=== PATIENT | female | born 1935 | race Caucasian/White ===

== ENCOUNTER 2017-06-26 12:55 | Inpatient (IN) | payer MEDICARE, BC ==
[2017-06-26] MEDS ORDERED: Sodium Chloride 0.9% 1,000 ML IV ONE ×2 (13:40→13:44)
[2017-06-26] MEDS ORDERED: Pantoprazole 40 MG Vial IVPUSH ONE (13:41)
[2017-06-26] MEDS ORDERED: Sodium Chloride 0.9% 10 ML Syringe FLUSH PRN ×2 (13:44→17:47)
[2017-06-26] MEDS ORDERED: Famotidine 20 MG/2 ML SDV IVPUSH ONE (13:45)
[2017-06-26] MEDS ORDERED: HYDROmorphone 0.5 MG/0.5 ML Syringe IVPUSH ONE ×2 (13:46→15:10)
--- NOTE | 2017-06-26 13:52 | EDM.PDOC ---
ED HPI GENERAL MEDICAL PROBLEM - General Chief Complaint: Abdominal Pain Stated Complaint: BLACK STOOLS AND WEAK Time Seen by Provider: 06/26/17 13:29 Source of Information: Reports: Patient History Limitations: Reports: No Limitations - History of Present Illness INITIAL COMMENTS - FREE TEXT/NARRATIVE: 82-year-old female presents for evaluation and treatment of black tarry stools and weakness. Patient reports this morning around 5 AM she woke up with some discomfort in her stomach. She went to the bathroom. She reports she had a normal bowel movement. She first went back to bed and she immediately felt worsening discomfort went to the bathroom. She reports that she had an episode of black tarry stools. They do not sound loosening and were formed. Since then she has had 2 additional episodes, for 3 episodes total this morning. She reports associated symptoms of weakness, dizziness, abdominal discomfort, decreased appetite and chest discomfort. She denies any nausea, vomiting or shortness of breath. States she's never had anything like this before. Patient reports chronic back pain. She states that she has been on number of different medications for chronic back pain including fentanyl patches, hydrocodone and tramadol. She is currently scheduled to see a pain clinic in [place] on Wednesday. She reports that she does take Tylenol and Motrin for her back pain. She is on 81 mg aspirin daily. Patient reports previous abdominal surgeries including appendectomy, cholecystectomy and hysterectomy. Back Pain Score (Numeric/FACES): 6 - Related Data Allergies Allergy/AdvReac Type Severity Reaction Status Date / Time codeine Allergy Cannot Verified 09/01/15 06:34 Remember penicillin V Allergy Cannot Verified 09/01/15 06:34 Remember celecoxib AdvReac Fainting Verified 09/01/15 06:34 Dairy Products AdvReac Diarrhea Verified 09/01/15 06:34 Home Meds: Home Meds Aspirin [Halfprin] 81 mg PO DAILY 06/26/17 [History] Levothyroxine [Sythroid] 100 mcg PO DAILY 06/26/17 [History] Losartan. 0.5 tab PO DAILY 06/26/17 [History] Naproxen Sodium [Aleve] 1 cap PO Q12H 06/26/17 [History] Simvastatin [Zocor] 20 mg PO DAILY 06/26/17 [History] Triamterene/Hydrochlorothiazid [Triamterene-HCTZ 37.5-25 MG] 1 cap PO DAILY [History] Vitamin B Complex 1 cap PO DAILY 06/26/17 [History] Past Medical History HEENT History: Reports: Impaired Vision Cardiovascular History: Reports: High Cholesterol, Hypertension Neurological History: Reports: Migraines Endocrine/Metabolic History: Reports: Hypothyroidism - Past Surgical History GI Surgical History: Reports: Appendectomy, Cholecystectomy Female Surgical History: Reports: Hysterectomy Musculoskeletal Surgical History: Reports: Other (See Below) Social & Family History - Tobacco Use Smoking Status *Q: Never Smoker - Caffeine Use Caffeine Use: Reports: Coffee Other Caffeine Use: decaf coffee-very little - Recreational Drug Use Recreational Drug Use: No ED ROS GENERAL - Review of Systems Review Of Systems: See Below Constitutional: Reports: Malaise, Weakness, Fatigue, Decreased Appetite Respiratory: Denies: Shortness of Breath Cardiovascular: Reports: Chest Pain ("discomfort"), Lightheadedness. Denies: Syncope GI/Abdominal: Reports: Abdominal Pain (discomfort), Decreased Appetite, Melena. Denies: Nausea, Vomiting Musculoskeletal: Reports: Back Pain (chronic) Neurological: Denies: Syncope ED EXAM, GI/ABD - Physical Exam Exam: See Below Exam Limited By: No Limitations General Appearance: Alert, WD/WN, No Apparent Distress Ears: Normal External Exam Nose: Normal Inspection Throat/Mouth: Normal Inspection, Normal Lips, Normal Oropharynx Neck: Normal Inspection Respiratory/Chest: No Respiratory Distress, Lungs Clear, Normal Breath Sounds, Chest Non-Tender Cardiovascular: Normal Peripheral Pulses, Regular Rate, Rhythm, No Murmur GI/Abdominal Exam: Normal Bowel Sounds, Soft, Non-Tender Rectal (Female) Exam: Normal Exam, Normal Rectal Tone, Black Stool, Heme + Stool Neurological: Alert, Oriented, Normal Cognition Psychiatric: Normal Affect, Normal Mood Skin Exam: Warm, Dry, Pallor EKG INTERPRETATION EKG Date: 06/26/17 Time: 14:10 Rhythm: NSR Rate (Beats/Min): 79 [place]: Normal P-Wave: Present QRS: Normal ST-T: Normal QT: Normal EKG Interpretation Comments: NSR at [address] inversion in V5-V6. No St elevation . Reviewed by myself and Dr. Wang. Course - Vital Signs Last Recorded V/S: Last Vital Signs Temp 36.9 C 06/26/17 19:13 Pulse 84 06/26/17 13:19 Resp 16 06/26/17 19:13 BP 103/52 L 06/26/17 19:13 Pulse Ox 96 06/26/17 19:13 Orthostatic Blood Pressure [ 90/57 Sitting] Orthostatic Blood Pressure [ 112/59 Supine] - Orders/Labs/Meds Orders: Active Orders 24 hr Category Date Time Status Cardiac Monitoring [RC] . DIRECTED Care 06/26/17 13:41 Active EKG 12 Lead [EKG Documentation Completion] [RC] STAT Care 06/26/17 13:45 Active Orthostatic Vital Signs [RC] ASDIRECTED Care 06/26/17 13:41 Active Peripheral IV Care [RC] . DIRECTED Care 06/26/17 13:44 Active Abdomen 2V AP Flat Upright [CR] Stat Exams 06/26/17 13:41 Taken Chest 2V [CR] Stat Exams 06/26/17 13:41 Taken Hemoccult [OCCULT BLOOD DIAGNOSTIC] [OP] Stat Lab 06/26/17 13:46 Ordered Sodium Chloride 0.9% [Normal Saline] 1,000 ml Med 06/26/17 13:44 Active IV ONETIME Sodium Chloride 0.9% [Saline Flush] Med 06/26/17 13:44 Active 10 ml FLUSH ASDIRECTED PRN Sodium Chloride 0.9% [Saline Flush] Med 06/26/17 17:47 Active 10 ml FLUSH ONETIME PRN Peripheral IV Insertion Adult [OM.PC] Routine Oth 06/26/17 13:44 Ordered Medication Orders Acetaminophen (Tylenol) 650 mg PO Q4H PRN PRN Reason: Pain (Mild 1-3)/fever Albuterol/Ipratropium (Duoneb 3.0-0.5 Mg/3 Ml) 3 ml NEB Q4H PRN PRN Reason: Shortness Of Breath/wheezing Aspirin (Halfprin) 81 mg PO DAILY KIMI Bisacodyl (Dulcolax) 5 mg PO DAILY PRN PRN Reason: Constipation Docusate Sodium (Colace) 100 mg PO BID PRN PRN Reason: Constipation Fentanyl (Duragesic) 12 mcg TRDERM Q72H KIMI Hydralazine HCl (Apresoline) 10 mg IVPUSH Q4H PRN PRN Reason: Hypertension Hydromorphone HCl (Dilaudid) 1 mg IVPUSH Q4H PRN PRN Reason: Pain (severe 7-10) Sodium Chloride (Normal Saline) 1,000 mls @ 100 mls/hr IV ONETIME ONE Stop: 06/26/17 23:43 Last Admin: 06/26/17 14:15 Dose: 100 mls/hr Promethazine HCl 12.5 mg/ (Sodium Chloride) 50.5 mls @ 100 mls/hr IV Q6H PRN PRN Reason: Nausea/Vomiting Levothyroxine Sodium (Synthroid) 100 mcg PO ACBRK KIMI Lorazepam (Ativan) 0.25 mg IV Q6H PRN PRN Reason: Anxiety Magnesium Sulfate (Pharmacy To Dose - Magnesium Replacement) 1 dose .XX ASDIRECTED [facility] Metoprolol Tartrate (Lopressor) 5 mg IVPUSH Q4H PRN PRN Reason: Tachycardia Miscellaneous Information (Remove Patch) 1 ea TRDERM Q72H [facility] Non-Formulary Medication (Losartan.) 0.5 tab PO DAILY KIMI Ondansetron HCl (Zofran) 4 mg IV Q6H PRN PRN Reason: Nausea/Vomiting Oxycodone HCl (Oxycodone) 5 mg PO Q4H PRN PRN Reason: Pain (moderate 4-6) Pantoprazole Sodium (Protonix) 40 mg PO BIDAC [facility] Polyethylene Glycol (Miralax) 17 gm PO DAILY PRN PRN Reason: Constipation Potassium Chloride (Pharmacy To Dose - Potassium Replacement) 1 dose .XX ASDIRECTED [facility] Senna/Docusate Sodium (Senna Plus) 1 tab PO BID PRN PRN Reason: Constipation Sodium Chloride (Saline Flush) 10 ml FLUSH ASDIRECTED PRN PRN Reason: Keep Vein Open Last Admin: 06/26/17 14:20 Dose: 10 ml Sodium Chloride (Saline Flush) 10 ml FLUSH ONETIME PRN PRN Reason: IV FLUSH Last Admin: 06/26/17 17:59 Dose: 10 ml Temazepam (Restoril) 7.5 mg PO BEDTIME PRN PRN Reason: Sleep Triamterene/HCTZ (Dyazide 25-37.5 Mg) 1 each PO DAILY [facility] Vitamin B Complex/Vitamin C (Super B With Vitamin C) 1 cap PO DAILY [facility] Labs: Laboratory Tests 01/13/18 01/13/18 01/13/18 Range/Units 14:15 14:15 14:15 WBC 8.10 (3.98-10.04) K/mm3 RBC 3.23 L (3.98-5.22) M/mm3 Hgb 10.5 L (11.2-15.7) gm/L Hct 32.0 L (34.1-44.9) % MCV 99.1 H (79.4-94.8) fl MCH 32.5 H (25.6-32.2) pg MCHC 32.8 (32.2-35.5) g/dl RDW Std Deviation 45.8 (36.4-46.3) fL Plt Count 172 L (182-369) K/mm3 MPV 8.7 L (9.4-12.3) fl Neutrophils % (Manual) 79 H (40-60) % Band Neutrophils % 0 (0-10) % Lymphocytes % (Manual) 14 L (20-40) % Atypical Lymphs % 0 % Monocytes % (Manual) 6 (2-10) % Eosinophils % (Manual) 1 (0.7-5.8) % Basophils % (Manual) 0 L (0.1-1.2) Platelet Estimate Adequate Anisocytosis 1+ slight Macrocytosis 1+ slight Ovalocytes 1+ slight RBC Morph Comment Not Reportable PT 10.7 (8.0-13.0) SECONDS INR 0.98 APTT 20 L (22-36) SECONDS Sodium 140 (136-145) mEq/L Potassium 3.6 (3.5-5.1) mEq/L Chloride 104 (98-107) mEq/L Carbon Dioxide 23 (21-32) mEq/L Anion Gap 16.6 H (5-15) BUN 60 H (7-18) mg/dL Creatinine 1.0 (0.55-1.02) mg/dL Est Cr Clr Drug Dosing 33.12 mL/min Estimated GFR (MDRD) 53 (>60) mL/min BUN/Creatinine Ratio 60.0 H (14-18) Glucose 145 H (83-115) mg/dL Calcium 9.1 (8.5-10.1) mg/dL Total Bilirubin 0.3 (0.2-1.0) mg/dL AST 38 H (15-37) U/L ALT 48 (14-59) U/L Alkaline Phosphatase 42 L (46-116) U/L CK-MB (CK-2) 1.5 (0-3.6) ng/ml Troponin I 0.019 (0.00-0.056) ng/mL Total Protein 6.2 L (6.4-8.2) g/dl Albumin 3.3 L (3.4-5.0) g/dl Globulin 2.9 gm/dL Albumin/Globulin Ratio 1.1 (1-2) Meds: Medications Generic Name Dose Route Start Last Admin Trade Name Freq PRN Reason Stop Dose Admin Acetaminophen 650 mg 06/26/17 19:13 Tylenol PO Q4H PRN Pain (Mild 1-3)/fever Albuterol/Ipratropium 3 ml 06/26/17 19:14 Duoneb 3.0-0.5 Mg/3 Ml NEB Q4H PRN Shortness Of Breath/wheezing Aspirin 81 mg 06/27/17 09:00 Halfprin PO DAILY KIMI Bisacodyl 5 mg 06/26/17 19:14 Dulcolax PO DAILY PRN Constipation Docusate Sodium 100 mg 06/26/17 19:14 Colace PO BID PRN Constipation Fentanyl 12 mcg 06/26/17 19:30 Duragesic TRDERM Q72H [facility] Hydralazine HCl 10 mg 06/26/17 19:17 Apresoline IVPUSH Q4H PRN Hypertension Hydromorphone HCl 1 mg 06/26/17 19:13 Dilaudid IVPUSH Q4H PRN Pain (severe 7-10) Sodium Chloride 1,000 mls @ 100 mls/hr 06/26/17 13:44 06/26/17 14:15 Normal Saline IV 06/26/17 23:43 100 mls/hr ONETIME ONE Administration Promethazine HCl 12.5 mg/ 50.5 mls @ 100 mls/hr 06/26/17 19:14 Sodium Chloride IV Q6H PRN Nausea/Vomiting Levothyroxine Sodium 100 mcg 06/27/17 06:00 Synthroid PO ACBRK [facility] Lorazepam 0.25 mg 06/26/17 19:14 Ativan IV Q6H PRN Anxiety Magnesium Sulfate 1 dose 06/26/17 19:30 Pharmacy To Dose - Magnesium Replacement .XX ASDIRECTED [facility] Metoprolol Tartrate 5 mg 06/26/17 19:17 Lopressor IVPUSH Q4H PRN Tachycardia Miscellaneous Information 1 ea 06/29/17 19:30 Remove Patch TRDERM Q72H [facility] Non-Formulary Medication 0.5 tab 06/27/17 09:00 Losartan. PO DAILY [facility] Ondansetron HCl 4 mg 06/26/17 19:14 Zofran IV Q6H PRN Nausea/Vomiting Oxycodone HCl 5 mg 06/26/17 19:13 Oxycodone PO Q4H PRN Pain (moderate 4-6) Pantoprazole Sodium 40 mg 06/27/17 06:00 Protonix PO BIDAC [facility] Polyethylene Glycol 17 gm 06/26/17 19:14 Miralax PO DAILY PRN Constipation Potassium Chloride 1 dose 06/26/17 19:30 Pharmacy To Dose - Potassium Replacement .XX ASDIRECTED [facility] Senna/Docusate Sodium 1 tab 06/26/17 19:14 Senna Plus PO BID PRN Constipation Sodium Chloride 10 ml 06/26/17 13:44 06/26/17 14:20 Saline Flush FLUSH 10 ml ASDIRECTED PRN Administration Keep Vein Open Sodium Chloride 10 ml 06/26/17 17:47 06/26/17 17:59 Saline Flush FLUSH 10 ml ONETIME PRN Administration IV FLUSH Temazepam 7.5 mg 06/26/17 19:14 Restoril PO BEDTIME PRN Sleep Triamterene/HCTZ 1 each 06/27/17 09:00 Dyazide 25-37.5 Mg PO DAILY [facility] Vitamin B Complex/Vitamin C 1 cap 06/27/17 09:00 Super B With Vitamin C PO DAILY [facility] Discontinued Medications Generic Name Dose Route Start Last Admin Trade Name Freq PRN Reason Stop Dose Admin Diatrizoate Meglum/Diatrizoate Sod 120 ml 06/26/17 17:47 06/26/17 17:59 Gastrografin 37% PO 06/26/17 17:48 100 ml ONETIME ONE Administration Famotidine 20 mg 06/26/17 13:45 06/26/17 14:20 Pepcid IVPUSH 06/26/17 13:46 20 mg ONETIME ONE Administration Hydromorphone HCl 0.5 mg 06/26/17 13:46 06/26/17 14:16 Dilaudid IVPUSH 06/26/17 13:47 0.5 mg ONETIME ONE Administration Hydromorphone HCl 0.5 mg 06/26/17 15:10 06/26/17 15:18 Dilaudid IVPUSH 06/26/17 15:11 0.5 mg ONETIME ONE Administration Sodium Chloride 1,000 mls @ 999 mls/hr 06/26/17 13:40 06/26/17 14:43 Normal Saline IV 06/26/17 14:40 Not Given ONETIME ONE Iopamidol 100 ml 06/26/17 17:47 06/26/17 17:59 Isovue-300 (61%) IVPUSH 06/26/17 17:48 100 ml ONETIME ONE Administration Morphine Sulfate 2 mg 06/26/17 18:24 06/26/17 18:31 Morphine IVPUSH 06/26/17 18:25 2 mg ONETIME ONE Administration Pantoprazole Sodium 80 mg 06/26/17 13:41 06/26/17 14:12 Protonix Iv IVPUSH 06/26/17 13:42 80 mg .BOLUS ONE Administration Pantoprazole Sodium Confirm 06/26/17 14:02 06/26/17 14:02 Protonix Iv Administered 06/26/17 14:03 Not Given Dose 40 mg .ROUTE .STK-MED ONE Pantoprazole Sodium Confirm 06/26/17 14:10 06/26/17 14:43 Protonix Iv Administered 06/26/17 14:11 Not Given Dose 40 mg .ROUTE .K-MED ONE - Radiology Interpretation Free Text/Narrative:: Chest: 2 views of the chest were obtained. Comparison: No prior chest x-ray. Subacute fractures are seen anteriorly within the left fourth and fifth ribs showing mild callus. Lungs show no acute parenchymal densities. Moderate compression deformities are seen within the mid thoracic spine. Scattered degenerative change is noted within the spine. Mild scoliosis is also noted. Heart size and mediastinum are normal. Impression: 1. Subacute fractures anteriorly within the left fourth and fifth ribs showing mild callus. 2. Other incidental findings as noted above Abdomen: Supine and upright views of the abdomen were obtained. Parison: No prior abdominal x-ray. Bowel gas pattern appears normal. Previous cholecystectomy is noted. Calcifications are seen within the pelvis which are compatible with phleboliths. Single surgical clip is seen overlying the left iliac wing. Mild scoliosis and degenerative change is noted within the spine. No free air is seen. Impression: 1. Incidental findings. CT abdomen and pelvis Technique: Multiple axial sections were obtained from above the dome of the diaphragm inferiorly through the pubic symphysis. Intravenous and oral contrast has been given. Delayed images were also obtained through the abdomen and pelvis. Comparison: No prior abdominal imaging. Findings: Visualized lung bases are clear. Liver shows no focal parenchymal abnormality. Surgical clips are identified from prior cholecystectomy. Spleen appears normal. Small amount of contrast is seen within the distal esophagus compatible with reflux. Adrenal glands show no nodule. Kidneys show symmetric contrast enhancement without hydronephrosis or mass. Pancreas is atrophied. Aorta shows no aneurysmal dilatation. No retroperitoneal adenopathy or mesenteric abnormalities are seen. No pelvic mass or adenopathy is noted. Delayed images shows contrast within the bladder. No free fluid or inflammatory change is seen. Appendix is not definitely visualized. Bone window settings were reviewed which shows diffuse degenerative change within the lumbar spine with disc space narrowing and spondylolisthesis seen at L2-3 due to degenerative apophyseal change. Severe disc space narrowing is also noted at L4-L5 and L5-S1 with vacuum phenomena. Other scattered degenerative change is seen within the lower thoracic and lumbar spine. Mild scoliosis is noted. Impression: 1. Findings as noted above. Nothing acute is appreciated. No etiology identified for the patient's abdominal discomfort or GI bleed. - Re-Assessments/Exams Free Text/Narrative Re-Assessment/Exam: 06/26/17 16:29 I discussed the EKG, x-ray and lab results with the patient. I feel she needs to be admitted as her hemoglobin is below normal at 10.4. She is also orthostatic. They were unable to fully assess her orthostatics due to her back pain and lightheadedness. She agrees to the admission. Case discussed with Dr. Matt, hospice on-call. He agrees to accept the patient. He asks that we obtain a CT of the abdomen and pelvis. 06/26/17 18:30 Patient has returned from CT. She is to go over to the medical floor for admission. She is reporting no pain relief with the Dilaudid. We will try her on 2 mg of morphine for pain relief. She states that she's had good pain relief with morphine in the past. Departure - Departure Time of Disposition: 18:31 Disposition: Admitted As Inpatient 64 Condition: Fair Clinical Impression: GI bleed, Back pain, Anemia, Orthostatic hypotension - Discharge Information - My Orders Last 24 Hours: My Active Orders 06/26/17 13:41 Cardiac Monitoring [RC] . DIRECTED Orthostatic Vital Signs [RC] ASDIRECTED Abdomen 2V AP Flat Upright [CR] Stat Chest 2V [CR] Stat 06/26/17 13:44 Peripheral IV Care [RC] . DIRECTED Sodium Chloride 0.9% [Normal Saline] 1,000 ml IV ONETIME Sodium Chloride 0.9% [Saline Flush] 10 ml FLUSH ASDIRECTED PRN Peripheral IV Insertion Adult [OM.PC] Routine 06/26/17 13:45 EKG 12 Lead [EKG Documentation Completion] [RC] STAT 06/26/17 13:46 Hemoccult [OCCULT BLOOD DIAGNOSTIC] [OP] Stat 06/26/17 17:47 Sodium Chloride 0.9% [Saline Flush] 10 ml FLUSH ONETIME PRN - Assessment/Plan Last 24 Hours: My Active Orders 06/26/17 13:41 Cardiac Monitoring [RC] . DIRECTED Orthostatic Vital Signs [RC] ASDIRECTED Abdomen 2V AP Flat Upright [CR] Stat Chest 2V [CR] Stat 06/26/17 13:44 Peripheral IV Care [RC] . DIRECTED Sodium Chloride 0.9% [Normal Saline] 1,000 ml IV ONETIME Sodium Chloride 0.9% [Saline Flush] 10 ml FLUSH ASDIRECTED PRN Peripheral IV Insertion Adult [OM.PC] Routine 06/26/17 13:45 EKG 12 Lead [EKG Documentation Completion] [RC] STAT 06/26/17 13:46 Hemoccult [OCCULT BLOOD DIAGNOSTIC] [OP] Stat 06/26/17 17:47 Sodium Chloride 0.9% [Saline Flush] 10 ml FLUSH ONETIME PRN
[2017-06-26] MEDS ORDERED: Pantoprazole 40 MG Vial ONE ×2 (14:02→14:10)
[2017-06-26] MEDS ORDERED: Iopamidol 612 MG/ML 100 ML Bottle IVPUSH ONE (17:47)
[2017-06-26] MEDS ORDERED: Diatrizoate Meglumine/Diatrizoate Sodium 37% 120 ML Bottle PO ONE (17:47)
[2017-06-26] MEDS ORDERED: Morphine 2 MG/ML Syringe IVPUSH ONE (18:24)
--- NOTE | 2017-06-26 18:28 | CT ---
CT abdomen and pelvis Technique: Multiple axial sections were obtained from above the dome of the diaphragm inferiorly through the pubic symphysis. Intravenous and oral contrast has been given. Delayed images were also obtained through the abdomen and pelvis. Comparison: No prior abdominal imaging. Findings: Visualized lung bases are clear. Liver shows no focal parenchymal abnormality. Surgical clips are identified from prior cholecystectomy. Spleen appears normal. Small amount of contrast is seen within the distal esophagus compatible with reflux. Adrenal glands show no nodule. Kidneys show symmetric contrast enhancement without hydronephrosis or mass. Pancreas is atrophied. Aorta shows no aneurysmal dilatation. No retroperitoneal adenopathy or mesenteric abnormalities are seen. No pelvic mass or adenopathy is noted. Delayed images shows contrast within the bladder. No free fluid or inflammatory change is seen. Appendix is not definitely visualized. Bone window settings were reviewed which shows diffuse degenerative change within the lumbar spine with disc space narrowing and spondylolisthesis seen at L2-3 due to degenerative apophyseal change. Severe disc space narrowing is also noted at L4-L5 and L5-S1 with vacuum phenomena. Other scattered degenerative change is seen within the lower thoracic and lumbar spine. Mild scoliosis is noted. Impression: 1. Findings as noted above. Nothing acute is appreciated. No etiology identified for the patient's abdominal discomfort or GI bleed. Diagnostic code #2
--- NOTE | 2017-06-26 18:31 | PCM.HP ---
H&P History of Present Illness - General Date of Service: 06/26/17 Admit Problem/Dx: Admission Diagnosis/Problem Admission Diagnosis/Problem GI bleed not requiring more than 4 units of blood in 24 hours, ICU, or surgery Source of Information: Patient, Old Records, Provider, RN Notes Reviewed History Limitations: Reports: Physical Impairment - History of Present Illness Initial Comments - Free Text/Narative: This is an 82 year old pleasant elderly white female with past medical history of impaired vision, hypertension, hyperlipidemia, migraines, hypothyroidism, severe spinal arthropathy who presents to the emergency department for evaluation and management of black tarry stool. Per patient she got up at about 5:00 am this morning not feeling well in the stomach and went had a bowel movement. At first it was regular but then subsequent bowel movements showed black pasty stool. She reports at least 2 more melenic stools this morning. Her chief complaint is associated with generalized weakness, nausea, dizziness, abdominal discomfort, and decreased appetite. Patient reports no previous history of it in the past. Her last meal was 2 slices of fresh pizza. She shared the same meal with other family members. Unfortunately nobody else got sick except her. She denies any unusual diet or drinks. Patient reports no history of EGD in the past. Her last colonoscopy was about 15-20 years ago with benign findings. She admits to a history of hemorrhoids. Her initial workup in the emergency department shows a CBC remarkable for RBC of 3.23, hemoglobin of 10.5, hematocrit of 32, MCV of 90, MCH of 32.5, Platelet of 172, neutrophils of 79%, and lymphocytes of 14%. Her coagulation studies shows PT of 10.7, INR of 0.98, and APTT of 20. Her chemistry is remarkable for anion gap of 16.6, BUN of 60, glucose of 145, AST of 38, alkaline phosphatase of 42, total protein of 6.2, and albumin of 3.3. Her CK-MB and troponin are both within normal limits. Her abdominal CT scan shows no acute abnormal GI findings. Patient is being admitted for abdominal discomfort and evaluation of melenic stools. She is DNR/ DNI Back Pain Score (Numeric/FACES): 6 - Related Data Allergies/Adverse Reactions: Allergies Allergy/AdvReac Type Severity Reaction Status Date / Time codeine Allergy Cannot Verified 06/26/17 21:10 Remember penicillin V Allergy Cannot Verified 06/26/17 21:10 Remember celecoxib AdvReac Fainting Verified 06/26/17 21:10 Dairy Products AdvReac Diarrhea Verified 06/26/17 21:10 Home Medications: Home Meds Aspirin [Halfprin] 81 mg PO DAILY 06/26/17 [History] Levothyroxine [Sythroid] 100 mcg PO DAILY 06/26/17 [History] Losartan. 0.5 tab PO DAILY 06/26/17 [History] Naproxen Sodium [Aleve] 1 cap PO Q12H 06/26/17 [History] Simvastatin [Zocor] 20 mg PO DAILY 06/26/17 [History] Triamterene/Hydrochlorothiazid [Triamterene-HCTZ 37.5-25 MG] 1 cap PO DAILY [History] Vitamin B Complex 1 cap PO DAILY 06/26/17 [History] Past Medical History HEENT History: Reports: Impaired Vision Cardiovascular History: Reports: High Cholesterol, Hypertension Musculoskeletal History: Reports: Back Pain, Chronic Neurological History: Reports: Migraines Endocrine/Metabolic History: Reports: Hypothyroidism - Past Surgical History HEENT Surgical History: Reports: Adenoidectomy, Tonsillectomy Cardiovascular Surgical History: Reports: Varicose GI Surgical History: Reports: Appendectomy, Cholecystectomy Female Surgical History: Reports: Hysterectomy, Other (See Below) Other Female Surgeries/Procedures: "bladder lift with my hysterectomy" Musculoskeletal Surgical History: Reports: Knee Replacement Other Musculoskeletal Surgeries/Procedures:: Bilateral knee replacement Social & Family History - Tobacco Use Smoking Status *Q: Never Smoker - Caffeine Use Caffeine Use: Reports: Coffee Other Caffeine Use: decaf coffee-very little - Recreational Drug Use Recreational Drug Use: No H&P Review of Systems - Review of Systems: Review Of Systems: See Below General: Reports: Malaise, Weakness, Fatigue, Decreased Appetite. Denies: Fever , Chills, Diaphoresis HEENT: Reports: No Symptoms Pulmonary: Denies: Shortness of Breath Cardiovascular: Reports: Lightheadedness. Denies: Chest Pain, Palpitations, Dyspnea on Exertion, Edema Gastrointestinal: Reports: Decreased Appetite, Melena, Nausea, Other (Abdominal Discomfort). Denies: Abdominal Pain, Difficulty Swallowing, Vomiting Genitourinary: Reports: No Symptoms Musculoskeletal: Reports: Back Pain Skin: Denies: Cyanosis, Mottled, Diaphoresis, Bruising, Erythema Psychiatric: Denies: Depression, Anxiety, Hallucinations Neurological: Reports: Weakness, Gait Disturbance. Denies: Confusion, Difficulty Walking Hematologic/Lymphatic: Reports: No Symptoms Immunologic: Reports: No Symptoms Exam - Exam Exam: See Below - Vital Signs Vital Signs: Last Vital Signs Temp 36.9 C 06/26/17 18:21 Pulse 84 06/26/17 13:19 Resp 15 06/26/17 18:21 BP 109/81 06/26/17 18:21 Pulse Ox 96 06/26/17 18:21 Weight: 56.699 kg - Exam General: Alert, Oriented, Cooperative. No: Mild Distress HEENT: Conjunctiva Clear, EACs Clear, EOMI, Hearing Intact, Mucosa Moist & [place] , Nares Patent, Normal Nasal Septum, Posterior Pharynx Clear, Pupils Equal, Pupils Reactive Neck: Supple, Trachea Midline Lungs: Clear to Auscultation, Normal Respiratory Effort Cardiovascular: Regular Rate, Regular Rhythm GI/Abdominal Exam: Normal Bowel Sounds, Soft, Non-Tender, No Organomegaly, No Distention, No Abnormal Bruit, No Mass. No: Guarding, Rigid, Rebound (Female) Exam: Deferred Rectal (Female) Exam: Deferred Back Exam: Normal Inspection, Decreased Range of Motion, Muscle Spasm, Vertebral Tenderness Extremities: Normal Inspection, Normal Range of Motion, Non-Tender, No Pedal Edema, Normal Capillary Refill Peripheral Pulses: 2+: Dorsalis Pedis (L), Dorsalis Pedis (R) Skin: Warm, Dry, Intact Neuro Extensive - Mental Status: Oriented x3, Normal Cognition, Memory Intact Neuro Extensive - Motor, Sensory, Reflexes: CN II-XII Intact, Abnormal Gait Psychiatric: Alert, Normal Affect, Normal Mood - Patient Data Result Diagrams: 06/26/17 14:15 06/26/17 14:15 *Q Meaningful Use (ADM) - VTE *Q VTE Criteria *Q: - Stroke *Q Stroke Criteria *Q: - AMI *Q AMI Criteria *Q: Problem List Initiated/Reviewed/Updated: Yes Orders Last 24hrs: Active Orders 24 hr Category Date Time Status Patient Status [ADT] Routine ADT 06/26/17 18:24 Active Medication Orders Sodium Chloride (Normal Saline) 1,000 mls @ 100 mls/hr IV ONETIME ONE Stop: 06/26/17 23:43 Last Admin: 06/26/17 14:15 Dose: 100 mls/hr Sodium Chloride (Saline Flush) 10 ml FLUSH ASDIRECTED PRN PRN Reason: Keep Vein Open Last Admin: 06/26/17 14:20 Dose: 10 ml Sodium Chloride (Saline Flush) 10 ml FLUSH ONETIME PRN PRN Reason: IV FLUSH Last Admin: 06/26/17 17:59 Dose: 10 ml Assessment/Plan Comment:: Assessment/Plan: Acute: Melena -Likely 2/2 Upper GI/PUD -Risk Factors: ASA and Chronic NSAIDs use due to back pain -Melenic Stools -Has a hx/o Hemorrhoids but no Diverticulosis or Abnormal GI Bleed -Has never had EGD but colonoscopy about 10-20 years ago with benign findings -Hold ASA and NSAIDs -Received H2B/PPIs in ED; resume PPIs -Clear liquid diet Abdominal Discomfort -Cannot r/o PUD -Abdominal/Pelvis CT scan showed no acute GI findings Generalized Weakness -Likely from poor intake and anxiety -PT/OT consult -Supportive Care Severe Spinal Arthropathy/DJD -Pain Medications: scheduled and prn -PT/OT consult -Stool softeners -Scheduled to have back injection with Dr. Sanabria in [place] on WednesdayJul 02 Abdominal/Pelvis CT Scan Abnormal Findings -Diffuse degenerative changes within the lumbar spine with disc space narrowing and spondylolisthesis at L2-L3 2/2 degenerative sapophyseal change -Severe disc space narrowing at L4-L5 and L5-S1 with vacuum phenomena -Scattered degenerative changes seen within the lower thoracic and lumbar spine -Mild scoliosis Chronic: Impaired Vision HTN HLD GERD Migraines Hypothyroidism Severe Spinal Stenosis Back Pain Plan: Admit to the floor Routine AM Labs Resume Home Meds Clear Liquid diet No ASA/NSAIDs PT/OT consult Defer GS consult for now DVT PPx: SCDs GI PPx: PPIs Code status: DNR/DNI
[2017-06-26] MEDS ORDERED: Acetaminophen 325 MG Tab PO PRN (19:13)
[2017-06-26] MEDS ORDERED: Bisacodyl 5 MG Tab PO PRN (19:14)
[2017-06-26] MEDS ORDERED: Polyethylene Glycol 3350 Powder 17 GM Packet PO PRN (19:14)
[2017-06-26] MEDS ORDERED: Temazepam 7.5 MG Cap PO PRN (19:14)
[2017-06-26] MEDS ORDERED: LORazepam 2 MG/ML MDV IV PRN (19:14)
[2017-06-26] MEDS ORDERED: Albuterol/Ipratropium 3.0-0.5 MG/3 ML Neb Soln NEB PRN (19:14)
[2017-06-26] MEDS ORDERED: Docusate Sodium 100 MG Cap PO PRN (19:14)
[2017-06-26] MEDS ORDERED: Promethazine 12.5 MG in Sodium Chloride 0.9% 50 ML IV PRN (19:14)
[2017-06-26] MEDS ORDERED: Metoprolol Tartrate 5 MG/5 ML SDV IVPUSH PRN (19:17)
[2017-06-26] MEDS ORDERED: hydrALAZINE 20 MG/ML SDV IVPUSH PRN (19:17)
[2017-06-26] MEDS ORDERED: fentaNYL 12 MCG/HR Transdermal Patch TRDERM SCH (19:30)
[2017-06-26] MEDS: HYDROmorphone 1 MG/ML Syringe IVPUSH PRN (20:58)
[2017-06-26] MEDS: Ondansetron 4 MG/2 ML SDV IV PRN (21:05)
[2017-06-27] MEDS: HYDROmorphone 1 MG/ML Syringe IVPUSH PRN ×4 (05:22→17:59)
[2017-06-27] MEDS: Levothyroxine 100 MCG Tab PO SCH (05:23)
[2017-06-27] MEDS ORDERED: Pantoprazole 40 MG Tab.CR PO SCH (06:00)
--- NOTE | 2017-06-27 06:45 | PCM.PN ---
- General Info Date of Service: 06/27/17 Admission Dx/Problem (Free Text): Admission Diagnosis/Problem Admission Diagnosis/Problem GI bleed not requiring more than 4 units of blood in 24 hours, ICU, or surgery Subjective Update: Follow Up Functional Status: Reports: Pain Controlled, Tolerating Diet, Ambulating, Urinating, New Symptoms - Review of Systems General: Denies: Fever, Weakness, Fatigue, Malaise, Chills HEENT: Reports: No Symptoms Pulmonary: Denies: Shortness of Breath Cardiovascular: Denies: Chest Pain Gastrointestinal: Reports: Flatus, Melena, Other (rectal bleed). Denies: Decreased Appetite, Nausea, Vomiting Genitourinary: Reports: No Symptoms Musculoskeletal: Reports: No Symptoms Skin: Denies: Cyanosis, Mottled, Pallor, Diaphoresis Neurological: Denies: Confusion, Difficulty Walking, Weakness, Gait Disturbance Psychiatric: Denies: Depression, Anxiety, Agitation, Hallucinations Systems Review Comment:: Patient did not sleep well overnight. She had rectal bleed at least 5 times. She also went into atrial fibrillation new onset at about 5 am this morning. She was given PRN Lopressor and so far HR is fairly controlled. Her Hgb this am is at 8.1. She is asymptomatic and appears to fairly stable. - Patient Data Vitals - Most Recent: Last Vital Signs Temp 36.6 C 06/27/17 04:22 Pulse 124 H 06/27/17 05:10 Resp 16 06/27/17 04:22 BP 110/56 L 06/27/17 05:10 Pulse Ox 100 06/27/17 04:22 Weight - Most Recent: 56.2 kg I&O - Last 24 Hours: Intake & Output 06/26/17 06/26/17 06/27/17 14:59 22:59 06:59 Intake Total 100 Output Total 500 Balance -400 Med Orders - Current: Current Medications Acetaminophen (Tylenol) 650 mg PO Q4H PRN PRN Reason: Pain (Mild 1-3)/fever Albuterol/Ipratropium (Duoneb 3.0-0.5 Mg/3 Ml) 3 ml NEB Q4H PRN PRN Reason: Shortness Of Breath/wheezing Aspirin (Halfprin) 81 mg PO DAILY [facility] Bisacodyl (Dulcolax) 5 mg PO DAILY PRN PRN Reason: Constipation Docusate Sodium (Colace) 100 mg PO BID PRN PRN Reason: Constipation Fentanyl (Duragesic) 12 mcg TRDERM Q72H [facility] Last Admin: 06/26/17 20:51 Dose: 12 mcg Hydralazine HCl (Apresoline) 10 mg IVPUSH Q4H PRN PRN Reason: Hypertension Hydromorphone HCl (Dilaudid) 1 mg IVPUSH Q4H PRN PRN Reason: Pain (severe 7-10) Last Admin: 06/27/17 05:22 Dose: 1 mg Promethazine HCl 12.5 mg/ (Sodium Chloride) 50.5 mls @ 100 mls/hr IV Q6H PRN PRN Reason: Nausea/Vomiting Levothyroxine Sodium (Synthroid) 100 mcg PO ACBRK [facility] Last Admin: 06/27/17 05:23 Dose: 100 mcg Lorazepam (Ativan) 0.25 mg IV Q6H PRN PRN Reason: Anxiety Magnesium Sulfate (Pharmacy To Dose - Magnesium Replacement) 1 dose .XX ASDIRECTED [facility] Metoprolol Tartrate (Lopressor) 5 mg IVPUSH Q4H PRN PRN Reason: Tachycardia Last Admin: 06/27/17 05:10 Dose: 5 mg Miscellaneous Information (Remove Patch) 1 ea TRDERM Q72H [facility] Non-Formulary Medication (Losartan.) 0.5 tab PO DAILY [facility] Ondansetron HCl (Zofran) 4 mg IV Q6H PRN PRN Reason: Nausea/Vomiting Last Admin: 06/26/17 21:05 Dose: 4 mg Oxycodone HCl (Oxycodone) 5 mg PO Q4H PRN PRN Reason: Pain (moderate 4-6) Pantoprazole Sodium (Protonix) 40 mg PO BIDAC [facility] Last Admin: 06/27/17 05:23 Dose: 40 mg Polyethylene Glycol (Miralax) 17 gm PO DAILY PRN PRN Reason: Constipation Potassium Chloride (Pharmacy To Dose - Potassium Replacement) 1 dose .XX ASDIRECTED [facility] Senna/Docusate Sodium (Senna Plus) 1 tab PO BID PRN PRN Reason: Constipation Sodium Chloride (Saline Flush) 10 ml FLUSH ASDIRECTED PRN PRN Reason: Keep Vein Open Last Admin: 06/26/17 14:20 Dose: 10 ml Sodium Chloride (Saline Flush) 10 ml FLUSH ONETIME PRN PRN Reason: IV FLUSH Last Admin: 06/26/17 17:59 Dose: 10 ml Temazepam (Restoril) 7.5 mg PO BEDTIME PRN PRN Reason: Sleep Triamterene/HCTZ (Dyazide 25-37.5 Mg) 1 each PO DAILY [facility] Vitamin B Complex/Vitamin C (Super B With Vitamin C) 1 cap PO DAILY [facility] Discontinued Medications Diatrizoate Meglum/Diatrizoate Sod (Gastrografin 37%) 120 ml PO ONETIME ONE Stop: 06/26/17 17:48 Last Admin: 06/26/17 17:59 Dose: 100 ml Famotidine (Pepcid) 20 mg IVPUSH ONETIME ONE Stop: 06/26/17 13:46 Last Admin: 06/26/17 14:20 Dose: 20 mg Hydromorphone HCl (Dilaudid) 0.5 mg IVPUSH ONETIME ONE Stop: 06/26/17 13:47 Last Admin: 06/26/17 14:16 Dose: 0.5 mg Hydromorphone HCl (Dilaudid) 0.5 mg IVPUSH ONETIME ONE Stop: 06/26/17 15:11 Last Admin: 06/26/17 15:18 Dose: 0.5 mg Sodium Chloride (Normal Saline) 1,000 mls @ 999 mls/hr IV ONETIME ONE Stop: 06/26/17 14:40 Last Admin: 06/26/17 14:43 Dose: Not Given Sodium Chloride (Normal Saline) 1,000 mls @ 100 mls/hr IV ONETIME ONE Stop: 06/26/17 23:43 Last Admin: 06/26/17 14:15 Dose: 100 mls/hr Iopamidol (Isovue-300 (61%)) 100 ml IVPUSH ONETIME ONE Stop: 06/26/17 17:48 Last Admin: 06/26/17 17:59 Dose: 100 ml Morphine Sulfate (Morphine) 2 mg IVPUSH ONETIME ONE Stop: 06/26/17 18:25 Last Admin: 06/26/17 18:31 Dose: 2 mg Pantoprazole Sodium (Protonix Iv) 80 mg IVPUSH .BOLUS ONE Stop: 06/26/17 13:42 Last Admin: 06/26/17 14:12 Dose: 80 mg Pantoprazole Sodium (Protonix Iv) Confirm Administered Dose 40 mg .ROUTE .STK -MED ONE Stop: 06/26/17 14:03 Last Admin: 06/26/17 14:02 Dose: Not Given Pantoprazole Sodium (Protonix Iv) Confirm Administered Dose 40 mg .ROUTE .STK -MED ONE Stop: 06/26/17 14:11 Last Admin: 06/26/17 14:43 Dose: Not Given - Exam General: Alert, Oriented, Cooperative, No Acute Distress HEENT: Pupils Equal, Pupils Reactive, EOMI, Mucous Membr. Moist/[place] Neck: Supple, Trachea Midline, No JVD Lungs: Clear to Auscultation, Normal Respiratory Effort Cardiovascular: Irregular Rhythm. No: Regular Rate GI/Abdominal Exam: Normal Bowel Sounds, Soft, Non-Tender, No Organomegaly, No Distention, No Abnormal Bruit, No Mass (Female) Exam: Deferred Back Exam: Normal Inspection, Decreased Range of Motion Extremities: Normal Inspection, Normal Range of Motion, Non-Tender, No Pedal Edema, Normal Capillary Refill Peripheral Pulses: 2+: Dorsalis Pedis (L), Dorsalis Pedis (R) Skin: Warm, Dry, Intact Neurological: No New Focal Deficit Psy/Mental Status: Alert, Normal Affect, Normal Mood - Problem List Review Problem List Initiated/Reviewed/Updated: Yes - My Orders Last 24 Hours: My Active Orders 06/26/17 19:13 Height and Weight [RC] 04 Intake and Output [RC] 04,16 Oxygen Therapy [RC] PRN Up ad Cony [RC] ASDIRECTED VTE/DVT Education [RC] PER UNIT ROUTINE Vital Signs [RC] Q4HR Acetaminophen [Tylenol] 650 mg PO Q4H PRN HYDROmorphone [Dilaudid] 1 mg IVPUSH Q4H PRN oxyCODONE 5 mg PO Q4H PRN Sequential Compression Device [OM.PC] Per Unit Routine Resuscitation Status Routine 06/26/17 19:14 Antiembolic Devices [RC] PER UNIT ROUTINE VTE/DVT Education [RC] PER UNIT ROUTINE Albuterol/Ipratropium [DuoNeb 3.0-0.5 MG/3 ML] 3 ml NEB Q4H PRN Bisacodyl [Dulcolax] 5 mg PO DAILY PRN Docusate Sodium [Colace] 100 mg PO BID PRN Docusate Sodium/Sennosides [Senna Plus] 1 tab PO BID PRN LORazepam [Ativan] 0.25 mg IV Q6H PRN Ondansetron [Zofran] 4 mg IV Q6H PRN Polyethylene Glycol 3350 [MiraLAX] 17 gm PO DAILY PRN Promethazine [Phenergan] 12.5 mg Sodium Chloride 0.9% [Normal Saline] 50 ml IV Q6H Temazepam [Restoril] 7.5 mg PO BEDTIME PRN 06/26/17 19:16 RT Aerosol Therapy [RC] ASDIRECTED Consult to Spiritual Care [CONS] Routine OT Evaluation and Treatment [CONS] Routine PT Evaluation and Treatment [CONS] Routine 06/26/17 19:17 Metoprolol Tartrate [Lopressor] 5 mg IVPUSH Q4H PRN hydrALAZINE [Apresoline] 10 mg IVPUSH Q4H PRN 06/26/17 19:30 Magnesium Rep Pharmacy to Dose [Pharmacy to Dose - Magnesium Replacement] 1 dose .XX ASDIRECTED Potassium Rep Pharmacy to Dose [Pharmacy to Dose - Potassium Replacement] 1 dose .XX ASDIRECTED fentaNYL [Duragesic] 12 mcg TRDERM Q72H 06/26/17 Dinner Clear Liquid Diet [DIET] 06/27/17 04:48 EKG Documentation Completion [RC] ASDIRECTED EKG 12 Lead [EK] Routine 06/27/17 05:11 BASIC METABOLIC PANEL,BMP [CHEM] AM CBC WITH AUTO DIFF [HEME] AM MAGNESIUM [CHEM] AM 06/27/17 06:00 Levothyroxine [Synthroid] 100 mcg PO ACBRK Pantoprazole [ProTONIX] 40 mg PO BIDAC 06/27/17 09:00 Aspirin [Halfprin] 81 mg PO DAILY HCTZ/Triamterene [Dyazide 25-37.5 MG] 1 each PO DAILY Losartan. 0.5 tab PO DAILY Vitamin B Complex with C [Super B With Vitamin C] 1 cap PO DAILY 06/28/17 05:11 BASIC METABOLIC PANEL,BMP [CHEM] AM CBC WITH AUTO DIFF [HEME] AM MAGNESIUM [CHEM] AM 06/29/17 05:11 BASIC METABOLIC PANEL,BMP [CHEM] AM CBC WITH AUTO DIFF [HEME] AM MAGNESIUM [CHEM] AM 06/29/17 19:30 Remove Patch 1 ea CECILEDERM Q72H - Plan Plan:: Assessment/Plan: Acute: Melena/Rectal Bleed -Likely 2/2 Upper GI/PUD -Risk Factors: ASA and Chronic NSAIDs use due to back pain -Melenic Stools -Has a hx/o Hemorrhoids but no Diverticulosis or Abnormal GI Bleed -Has never had EGD but colonoscopy about 10-20 years ago with benign findings -Hold ASA and NSAIDs -Received H2B/PPIs in ED; resume PPIs -Clear liquid diet -She is still actively bleeding -Called Dr. Blount for consultation Abdominal Discomfort -Cannot r/o PUD -Abdominal/Pelvis CT scan showed no acute GI findings New Onset of Atrial Fibrillation, HR Fairly controlled -Likely from volume and blood loss -Continue PRN Lopressor and will start Metoprolol 25 mg po BID -Infuse 500 ml bolus x1 now and then start at 125 cc/hr for maintenance -Hold off moving her to ICU -If she does chemically convert, will consider electrical sometime this afternoon Generalized Weakness -Likely from poor intake and anxiety -PT/OT consult; no services today-resume tomorrow -Supportive Care Severe Spinal Arthropathy/DJD -Pain Medications: scheduled and prn -PT/OT consult; no services today-resume tomorrow -Stool softeners -Scheduled to have back injection with Dr. Sanabria in [place] on WednesdayJul 02 Abdominal/Pelvis CT Scan Abnormal Findings -Diffuse degenerative changes within the lumbar spine with disc space narrowing and spondylolisthesis at L2-L3 2/2 degenerative sapophyseal change -Severe disc space narrowing at L4-L5 and L5-S1 with vacuum phenomena -Scattered degenerative changes seen within the lower thoracic and lumbar spine -Mild scoliosis Chronic: Impaired Vision HTN HLD GERD Migraines Hypothyroidism Severe Spinal Stenosis Back Pain Plan: She is becoming hemodynamically unstable Routine AM Labs Carafate 1 gm po QID Clear Liquid diet No ASA/NSAIDs Repeat Hgb level this afternoon GS consult today She may need urgent endoscopy today DVT PPx: SCDs; Anticoags contraindicated due to active GI Bleed GI PPx: PPIs Code status: DNR/DNI
[2017-06-27] MEDS ORDERED: Aspirin 81 MG Tab.EC PO SCH (09:00)
[2017-06-27] MEDS ORDERED: Diltiazem 25 MG/5 ML SDV IVPUSH ONE (10:07)
[2017-06-27] MEDS: Metoprolol Tartrate 25 MG Tab PO SCH ×2 (10:21→21:10)
[2017-06-27] MEDS: Vitamin B Complex With Vitamin C Cap PO SCH (10:21)
[2017-06-27] MEDS: Hydrochlorothiazide/Triamterene 25-37.5 MG Cap PO SCH (10:22)
[2017-06-27] MEDS: Pantoprazole 80 MG in Sodium Chloride 0.9% 100 ML IV SCH ×2 (10:37→19:28)
[2017-06-27] MEDS ORDERED: Sodium Chloride 0.9% 500 ML IV ONE (10:48)
[2017-06-27] MEDS: Magnesium Oxide 400 MG Tab PO SCH ×2 (11:18→21:06)
[2017-06-27] MEDS: Potassium Chloride 20 MEQ Tab.ER PO SCH ×2 (11:18→14:27)
--- NOTE | 2017-06-27 12:00 | CR ---
Chest: Two views of the chest were obtained. Comparison: No prior chest x-ray. Subacute fractures are seen anteriorly within the left fourth and fifth ribs showing mild callus. Lungs show no acute parenchymal densities. Moderate compression deformities are seen within the mid thoracic spine. Scattered degenerative change is noted within the spine. Mild scoliosis is also noted. Heart size and mediastinum are normal. Impression: 1. Subacute fractures anteriorly within the left fourth and fifth ribs showing mild callus. 2. Other incidental findings as noted above. Diagnostic code #3
--- NOTE | 2017-06-27 12:17 | CR ---
Abdomen: Supine and upright views of the abdomen were obtained. Parison: No prior abdominal x-ray. Bowel gas pattern appears normal. Previous cholecystectomy is noted. Calcifications are seen within the pelvis which are compatible with phleboliths. Single surgical clip is seen overlying the left iliac wing. Mild scoliosis and degenerative change is noted within the spine. No free air is seen. Impression: 1. Incidental findings. Diagnostic code #2
[2017-06-27] MEDS: oxyCODONE 5 MG Tab PO PRN ×2 (12:23→21:07)
[2017-06-27] MEDS ORDERED: Sucralfate 1 GM Tab PO ONE (14:15)
[2017-06-27] MEDS: Sodium Chloride 0.9% 1,000 ML IV SCH (14:29)
--- NOTE | 2017-06-27 14:59 | PCM.CONSN ---
- General Info Date of Service: 06/27/17 - Patient Data Vitals - Most Recent: Last Vital Signs Temp 98.9 F 06/27/17 14:32 Pulse 82 06/27/17 14:32 Resp 17 06/27/17 14:32 BP 115/97 H 06/27/17 14:32 Pulse Ox 91 L 06/27/17 11:09 Weight - Most Recent: 56.2 kg I&O - Last 24 Hours: Intake & Output 06/26/17 06/27/17 06/27/17 23:59 07:59 15:59 Intake Total 1100 480 Output Total 500 Balance 600 480 Lab Results Last 24 Hours: Laboratory Results - last 24 hr 06/27/17 06/27/17 06/27/17 Range/Units 06:13 06:13 13:11 WBC 6.59 (3.98-10.04) K/mm3 RBC 2.50 L (3.98-5.22) M/mm3 Hgb 8.1 L 6.9 L* (11.2-15.7) gm/L Hct 25.0 L 21.4 L (34.1-44.9) % MCV 100.0 H (79.4-94.8) fl MCH 32.4 H (25.6-32.2) pg MCHC 32.4 (32.2-35.5) g/dl RDW Std Deviation 46.9 H (36.4-46.3) fL Plt Count 172 L (182-369) K/mm3 MPV 9.2 L (9.4-12.3) fl Neut % (Auto) 69.8 (34.0-71.1) % Lymph % (Auto) 21.1 (19.3-51.7) % [place] % (Auto) 8.3 (4.7-12.5) % Eos % (Auto) 0.3 L (0.7-5.8) Baso % (Auto) 0.3 (0.1-1.2) % Neut # (Auto) 4.60 (1.56-6.13) K/mm3 Lymph # (Auto) 1.39 (1.18-3.74) K/mm3 [place] # (Auto) 0.55 H (0.24-0.36) K/mm3 Eos # (Auto) 0.02 L (0.04-0.36) K/mm3 Baso # (Auto) 0.02 (0.01-0.08) K/mm3 Sodium 142 (136-145) mEq/L Potassium 3.2 L (3.5-5.1) mEq/L Chloride 106 (98-107) mEq/L Carbon Dioxide 23 (21-32) mEq/L Anion Gap 16.2 H (5-15) BUN 55 H (7-18) mg/dL Creatinine 1.0 (0.55-1.02) mg/dL Est Cr Clr Drug Dosing 31.60 mL/min Estimated GFR (MDRD) 53 (>60) mL/min BUN/Creatinine Ratio 55.0 H (14-18) Glucose 139 H (83-115) mg/dL Calcium 8.2 L (8.5-10.1) mg/dL Magnesium 1.8 (1.8-2.4) mg/dl Blood Type Gel Antibody Screen Crossmatch 06/27/17 Range/Units 13:11 WBC (3.98-10.04) K/mm3 RBC (3.98-5.22) M/mm3 Hgb (11.2-15.7) gm/L Hct (34.1-44.9) % MCV (79.4-94.8) fl MCH (25.6-32.2) pg MCHC (32.2-35.5) g/dl RDW Std Deviation (36.4-46.3) fL Plt Count (182-369) K/mm3 MPV (9.4-12.3) fl Neut % (Auto) (34.0-71.1) % Lymph % (Auto) (19.3-51.7) % [place] % (Auto) (4.7-12.5) % Eos % (Auto) (0.7-5.8) Baso % (Auto) (0.1-1.2) % Neut # (Auto) (1.56-6.13) K/mm3 Lymph # (Auto) (1.18-3.74) K/mm3 [place] # (Auto) (0.24-0.36) K/mm3 Eos # (Auto) (0.04-0.36) K/mm3 Baso # (Auto) (0.01-0.08) K/mm3 Sodium (136-145) mEq/L Potassium (3.5-5.1) mEq/L Chloride (98-107) mEq/L Carbon Dioxide (21-32) mEq/L Anion Gap (5-15) BUN (7-18) mg/dL Creatinine (0.55-1.02) mg/dL Est Cr Clr Drug Dosing mL/min Estimated GFR (MDRD) (>60) mL/min BUN/Creatinine Ratio (14-18) Glucose (83-115) mg/dL Calcium (8.5-10.1) mg/dL Magnesium (1.8-2.4) mg/dl Blood Type A NEGATIVE Gel Antibody Screen Negative Crossmatch See Detail Med Orders - Current: Current Medications Acetaminophen (Tylenol) 650 mg PO Q4H PRN PRN Reason: Pain (Mild 1-3)/fever Albuterol/Ipratropium (Duoneb 3.0-0.5 Mg/3 Ml) 3 ml NEB Q4H PRN PRN Reason: Shortness Of Breath/wheezing Aspirin (Halfprin) 81 mg PO DAILY [facility] Bisacodyl (Dulcolax) 5 mg PO DAILY PRN PRN Reason: Constipation Docusate Sodium (Colace) 100 mg PO BID PRN PRN Reason: Constipation Fentanyl (Duragesic) 12 mcg TRDERM Q72H [facility] Last Admin: 06/26/17 20:51 Dose: 12 mcg Hydralazine HCl (Apresoline) 10 mg IVPUSH Q4H PRN PRN Reason: Hypertension Hydromorphone HCl (Dilaudid) 1 mg IVPUSH Q4H PRN PRN Reason: Pain (severe 7-10) Last Admin: 06/27/17 14:35 Dose: 1 mg Promethazine HCl 12.5 mg/ (Sodium Chloride) 50.5 mls @ 100 mls/hr IV Q6H PRN PRN Reason: Nausea/Vomiting Pantoprazole Sodium 80 mg/ (Sodium Chloride) 100 mls @ 10 mls/hr IV Q10H [facility] Last Admin: 06/27/17 10:37 Dose: 10 mls/hr Sodium Chloride (Normal Saline) 1,000 mls @ 125 mls/hr IV ASDIRECTED [facility] Last Admin: 06/27/17 14:29 Dose: 125 mls/hr Levothyroxine Sodium (Synthroid) 100 mcg PO ACBRK [facility] Last Admin: 06/27/17 05:23 Dose: 100 mcg Lorazepam (Ativan) 0.25 mg IV Q6H PRN PRN Reason: Anxiety Magnesium Oxide (Magnesium Oxide) 400 mg PO BID [facility] Stop: 06/27/17 21:01 Last Admin: 06/27/17 11:18 Dose: 400 mg Magnesium Sulfate (Pharmacy To Dose - Magnesium Replacement) 0 dose .XX ASDIRECTED PRN PRN Reason: RX TO WATCH MAG LEVELS Metoprolol Tartrate (Lopressor) 5 mg IVPUSH Q4H PRN PRN Reason: Tachycardia Last Admin: 06/27/17 05:10 Dose: 5 mg Metoprolol Tartrate (Lopressor) 25 mg PO Q12HR [facility] Last Admin: 06/27/17 10:21 Dose: 25 mg Miscellaneous Information (Remove Patch) 1 ea TRDERM Q72H [facility] Non-Formulary Medication (Losartan.) 0.5 tab PO DAILY [facility] Ondansetron HCl (Zofran) 4 mg IV Q6H PRN PRN Reason: Nausea/Vomiting Last Admin: 06/26/17 21:05 Dose: 4 mg Oxycodone HCl (Oxycodone) 5 mg PO Q4H PRN PRN Reason: Pain (moderate 4-6) Last Admin: 06/27/17 12:23 Dose: 5 mg Polyethylene Glycol (Miralax) 17 gm PO DAILY PRN PRN Reason: Constipation Potassium Chloride (Pharmacy To Dose - Potassium Replacement) 0 dose .XX ASDIRECTED PRN PRN Reason: RX TO WATCH K LEVELS Potassium Chloride (Klor-Con M20) 40 meq PO Q4H [facility] Stop: 06/27/17 15:01 Last Admin: 06/27/17 14:27 Dose: 40 meq Senna/Docusate Sodium (Senna Plus) 1 tab PO BID PRN PRN Reason: Constipation Sodium Chloride (Saline Flush) 10 ml FLUSH ASDIRECTED PRN PRN Reason: Keep Vein Open Last Admin: 06/26/17 14:20 Dose: 10 ml Sodium Chloride (Saline Flush) 10 ml FLUSH ONETIME PRN PRN Reason: IV FLUSH Last Admin: 06/26/17 17:59 Dose: 10 ml Sucralfate (Carafate) 1 gm PO QID [facility] Temazepam (Restoril) 7.5 mg PO BEDTIME PRN PRN Reason: Sleep Triamterene/HCTZ (Dyazide 25-37.5 Mg) 1 each PO DAILY [facility] Last Admin: 06/27/17 10:22 Dose: 1 each Vitamin B Complex/Vitamin C (Super B With Vitamin C) 1 cap PO DAILY [facility] Last Admin: 06/27/17 10:21 Dose: 1 cap Discontinued Medications Diatrizoate Meglum/Diatrizoate Sod (Gastrografin 37%) 120 ml PO ONETIME ONE Stop: 06/26/17 17:48 Last Admin: 06/26/17 17:59 Dose: 100 ml Diltiazem HCl (Diltiazem) 10 mg IVPUSH ONETIME ONE Stop: 06/27/17 10:08 Last Admin: 06/27/17 10:23 Dose: 10 mg Famotidine (Pepcid) 20 mg IVPUSH ONETIME ONE Stop: 06/26/17 13:46 Last Admin: 06/26/17 14:20 Dose: 20 mg Hydromorphone HCl (Dilaudid) 0.5 mg IVPUSH ONETIME ONE Stop: 06/26/17 13:47 Last Admin: 06/26/17 14:16 Dose: 0.5 mg Hydromorphone HCl (Dilaudid) 0.5 mg IVPUSH ONETIME ONE Stop: 06/26/17 15:11 Last Admin: 06/26/17 15:18 Dose: 0.5 mg Sodium Chloride (Normal Saline) 1,000 mls @ 999 mls/hr IV ONETIME ONE Stop: 06/26/17 14:40 Last Admin: 06/26/17 14:43 Dose: Not Given Sodium Chloride (Normal Saline) 1,000 mls @ 100 mls/hr IV ONETIME ONE Stop: 06/26/17 23:43 Last Admin: 06/26/17 14:15 Dose: 100 mls/hr Sodium Chloride (Normal Saline) 500 mls @ 999 mls/hr IV .BOLUS ONE Stop: 06/27/17 11:18 Last Admin: 06/27/17 11:25 Dose: 999 mls/hr Iopamidol (Isovue-300 (61%)) 100 ml IVPUSH ONETIME ONE Stop: 06/26/17 17:48 Last Admin: 06/26/17 17:59 Dose: 100 ml Morphine Sulfate (Morphine) 2 mg IVPUSH ONETIME ONE Stop: 06/26/17 18:25 Last Admin: 06/26/17 18:31 Dose: 2 mg Pantoprazole Sodium (Protonix Iv) 80 mg IVPUSH .BOLUS ONE Stop: 06/26/17 13:42 Last Admin: 06/26/17 14:12 Dose: 80 mg Pantoprazole Sodium (Protonix Iv) Confirm Administered Dose 40 mg .ROUTE .STK -MED ONE Stop: 06/26/17 14:03 Last Admin: 06/26/17 14:02 Dose: Not Given Pantoprazole Sodium (Protonix Iv) Confirm Administered Dose 40 mg .ROUTE .STK -MED ONE Stop: 06/26/17 14:11 Last Admin: 06/26/17 14:43 Dose: Not Given Pantoprazole Sodium (Protonix) 40 mg PO BIDAC [facility] Last Admin: 06/27/17 05:23 Dose: 40 mg Sucralfate (Carafate) 1 gm PO ONETIME ONE Stop: 06/27/17 14:16 Last Admin: 06/27/17 14:28 Dose: 1 gm Consult PN Assessment/Plan Procedures: Procedures ASSAY OF CREATININE (06/18/17) COMP SCREEN MAMMOGRAM ADD-ON (08/05/15) COMPLETE CBC W/AUTO DIFF WBC (09/01/15) COMPREHEN METABOLIC PANEL (09/01/15) CULTURE AEROBIC IDENTIFY (07/03/14) EMERGENCY DEPT VISIT (09/01/15) MICROBE SUSCEPTIBLE AUDELIA (03/20/15) MRI LUMBAR SPINE W/O DYE (06/18/17) MRI NECK SPINE W/O DYE (08/28/14) ROUTINE VENIPUNCTURE (06/18/17) THER/PROPH/DIAG INJ SC/IM (09/01/15) URINALYSIS AUTO W/SCOPE (09/01/15) URINE BACTERIA CULTURE (03/20/15) URINE CULTURE/COLONY COUNT (03/20/15) Problem List Initiated/Reviewed/Updated: Yes Plan: surgical consult dictated BRANDI
[2017-06-27] MEDS ORDERED: Sodium Chloride 0.9% 50 ML SDV ONE (15:10)
[2017-06-27] MEDS ORDERED: EPINEPHrine 1 MG/ML 30 ML MDV ONE (15:10)
[2017-06-27] MEDS ORDERED: EPINEPHrine 1 MG/ML SDV ONE (15:10)
--- NOTE | 2017-06-27 15:17 | PCM.PREANE ---
Preanesthetic Assessment - Anesthesia/Transfusion/Family Hx Anesthesia History: Prior Anesthesia Without Reaction Family History of Anesthesia Reaction: No Transfusion History: Prior Transfusion Without Reaction Intubation History: Unknown - Review of Systems General: Weakness, Fatigue Pulmonary: No Symptoms Cardiovascular: No Symptoms (History of HTN), Palpitations, Lightheadedness Gastrointestinal: No Symptoms, Decreased Appetite, Nausea Neurological: No Symptoms (History of chronic back pain), Headache (History of migraines) Other: Reports: Thyroid Problems (Hypothyroid) - Physical Assessment NPO Status Date: 06/27/17 NPO Status Time: 13:30 Pulse: 91 O2 Sat by Pulse Oximetry: 91 Respiratory Rate: 17 Blood Pressure: 91/45 Temperature: 37.2 C Vital Signs: Last Vital Signs Temp 37.2 C 06/27/17 14:32 Pulse 82 06/27/17 14:32 Resp 17 06/27/17 14:32 BP 115/97 H 06/27/17 14:32 Pulse Ox 91 L 06/27/17 11:09 Height: 1.55 m Weight: 56.2 kg ASA Class: 3E Mental Status: Alert & Oriented x3 Airway Class: Mallampati = 2 Dentition: Reports: Dentures Thyro-Mental Finger Breadths: 3 Mouth Opening Finger Breadths: 3 ROM/Head Extension: Full Lungs: Clear to Auscultation, Normal Respiratory Effort Cardiovascular: Regular Rate, Regular Rhythm, No Murmurs - Lab Values: Laboratory Last Values WBC 6.59 K/mm3 (3.98-10.04) 06/27/17 06:13 RBC 2.50 M/mm3 (3.98-5.22) L 06/27/17 06:13 Hgb 6.9 gm/L (11.2-15.7) L* 06/27/17 13:11 Hct 21.4 % (34.1-44.9) L 06/27/17 13:11 MCV 100.0 fl (79.4-94.8) H 06/27/17 06:13 MCH 32.4 pg (25.6-32.2) H 06/27/17 06:13 MCHC 32.4 g/dl (32.2-35.5) 06/27/17 06:13 RDW Std Deviation 46.9 fL (36.4-46.3) H 06/27/17 06:13 Plt Count 172 K/mm3 (182-369) L 06/27/17 06:13 MPV 9.2 fl (9.4-12.3) L 06/27/17 06:13 Neut % (Auto) 69.8 % (34.0-71.1) 06/27/17 06:13 Lymph % (Auto) 21.1 % (19.3-51.7) 06/27/17 06:13 [place] % (Auto) 8.3 % (4.7-12.5) 06/27/17 06:13 Eos % (Auto) 0.3 (0.7-5.8) L 06/27/17 06:13 Baso % (Auto) 0.3 % (0.1-1.2) 06/27/17 06:13 Neut # (Auto) 4.60 K/mm3 (1.56-6.13) 06/27/17 06:13 Lymph # (Auto) 1.39 K/mm3 (1.18-3.74) 06/27/17 06:13 [place] # (Auto) 0.55 K/mm3 (0.24-0.36) H 06/27/17 06:13 Eos # (Auto) 0.02 K/mm3 (0.04-0.36) L 06/27/17 06:13 Baso # (Auto) 0.02 K/mm3 (0.01-0.08) 06/27/17 06:13 Neutrophils % (Manual) 79 % (40-60) H 06/26/17 14:15 Band Neutrophils % 0 % (0-10) 06/26/17 14:15 Lymphocytes % (Manual) 14 % (20-40) L 06/26/17 14:15 Atypical Lymphs % 0 % 06/26/17 14:15 Monocytes % (Manual) 6 % (2-10) 06/26/17 14:15 Eosinophils % (Manual) 1 % (0.7-5.8) 06/26/17 14:15 Basophils % (Manual) 0 (0.1-1.2) L 06/26/17 14:15 Platelet Estimate Adequate 06/26/17 14:15 Anisocytosis 1+ slight 06/26/17 14:15 Macrocytosis 1+ slight 06/26/17 14:15 Ovalocytes 1+ slight 06/26/17 14:15 RBC Morph Comment Not Reportable 06/26/17 14:15 PT 10.7 SECONDS (8.0-13.0) 06/26/17 14:15 INR 0.98 06/26/17 14:15 APTT 20 SECONDS (22-36) L 06/26/17 14:15 Sodium 142 mEq/L (136-145) 06/27/17 06:13 Potassium 3.2 mEq/L (3.5-5.1) L 06/27/17 06:13 Chloride 106 mEq/L (98-107) 06/27/17 06:13 Carbon Dioxide 23 mEq/L (21-32) 06/27/17 06:13 Anion Gap 16.2 (5-15) H 06/27/17 06:13 BUN 55 mg/dL (7-18) H 06/27/17 06:13 Creatinine 1.0 mg/dL (0.55-1.02) 06/27/17 06:13 Est Cr Clr Drug Dosing 31.60 mL/min 06/27/17 06:13 Estimated GFR (MDRD) 53 mL/min (>60) 06/27/17 06:13 BUN/Creatinine Ratio 55.0 (14-18) H 06/27/17 06:13 Glucose 139 mg/dL (83-115) H 06/27/17 06:13 Calcium 8.2 mg/dL (8.5-10.1) L 06/27/17 06:13 Magnesium 1.8 mg/dl (1.8-2.4) 06/27/17 06:13 Total Bilirubin 0.3 mg/dL (0.2-1.0) 06/26/17 14:15 AST 38 U/L (15-37) H 06/26/17 14:15 ALT 48 U/L (14-59) 06/26/17 14:15 Alkaline Phosphatase 42 U/L (46-116) L 06/26/17 14:15 CK-MB (CK-2) 1.5 ng/ml (0-3.6) 06/26/17 14:15 Troponin I 0.019 ng/mL (0.00-0.056) 06/26/17 14:15 Total Protein 6.2 g/dl (6.4-8.2) L 06/26/17 14:15 Albumin 3.3 g/dl (3.4-5.0) L 06/26/17 14:15 Globulin 2.9 gm/dL 06/26/17 14:15 Albumin/Globulin Ratio 1.1 (1-2) 06/26/17 14:15 Blood Type A NEGATIVE 06/27/17 13:11 Gel Antibody Screen Negative 06/27/17 13:11 Crossmatch See Detail 06/27/17 13:11 Above labs reviewed and noted and discussed with Dr. Blount. Light Mac sedation agreed upon for safety of patient. - Imaging/EKG Impressions: EKG: NSR rate= 79, Twave inversion in V5-V6, no st segment elevation. CXR: Subacute fractures anterior within left 4th/5th ribs - Allergies Allergies/Adverse Reactions: Allergies Allergy/AdvReac Type Severity Reaction Status Date / Time codeine Allergy Cannot Verified 06/26/17 21:10 Remember penicillin V Allergy Cannot Verified 06/26/17 21:10 Remember celecoxib AdvReac Fainting Verified 06/26/17 21:10 Dairy Products AdvReac Diarrhea Verified 06/26/17 21:10 - Anesthesia Plan Pre-Op Medication Ordered: Beta Laverne Beta Laverne: Metoprolol Med Last Dose Date: 06/27/17 Med Last Dose Time: 05:10 - Acknowledgements Anesthesia Type Planned: MAC Pt an Appropriate Candidate for the Planned Anesthesia: Yes Alternatives and Risks of Anesthesia Discussed w Pt/Guardian: Yes Pt/Guardian Understands and Agrees with Anesthesia Plan: Yes PreAnesthesia Questionnaire HEENT History: Reports: Impaired Vision Cardiovascular History: Reports: High Cholesterol, Hypertension Musculoskeletal History: Reports: Back Pain, Chronic Neurological History: Reports: Migraines Endocrine/Metabolic History: Reports: Hypothyroidism - Past Surgical History HEENT Surgical History: Reports: Adenoidectomy, Tonsillectomy Cardiovascular Surgical History: Reports: Varicose GI Surgical History: Reports: Appendectomy, Cholecystectomy Female Surgical History: Reports: Hysterectomy, Other (See Below) Other Female Surgeries/Procedures: "bladder lift with my hysterectomy" Musculoskeletal Surgical History: Reports: Knee Replacement Other Musculoskeletal Surgeries/Procedures:: Bilateral knee replacement - SUBSTANCE USE Smoking Status *Q: Never Smoker Recreational Drug Use History: No - HOME MEDS Home Medications: Home Meds Aspirin [Halfprin] 81 mg PO DAILY 06/26/17 [History] Levothyroxine [Sythroid] 100 mcg PO DAILY 06/26/17 [History] Naproxen Sodium [Aleve] 1 cap PO Q12H 06/26/17 [History] Simvastatin [Zocor] 20 mg PO DAILY 06/26/17 [History] Triamterene/Hydrochlorothiazid [Triamterene-HCTZ 37.5-25 MG] 1 cap PO DAILY [History] Vitamin B Complex 1 cap PO DAILY 06/26/17 [History] Losartan [Cozaar] 25 mg PO DAILY 06/27/17 [History] - CURRENT (IN HOUSE) MEDS Current Meds: Current Medications Acetaminophen (Tylenol) 650 mg PO Q4H PRN PRN Reason: Pain (Mild 1-3)/fever Albuterol/Ipratropium (Duoneb 3.0-0.5 Mg/3 Ml) 3 ml NEB Q4H PRN PRN Reason: Shortness Of Breath/wheezing Aspirin (Halfprin) 81 mg PO DAILY REPLACED BY [facility] Bisacodyl (Dulcolax) 5 mg PO DAILY PRN PRN Reason: Constipation Docusate Sodium (Colace) 100 mg PO BID PRN PRN Reason: Constipation Fentanyl (Duragesic) 12 mcg TRDERM Q72H REPLACED BY [facility] Last Admin: 06/26/17 20:51 Dose: 12 mcg Hydralazine HCl (Apresoline) 10 mg IVPUSH Q4H PRN PRN Reason: Hypertension Hydromorphone HCl (Dilaudid) 1 mg IVPUSH Q4H PRN PRN Reason: Pain (severe 7-10) Last Admin: 06/27/17 14:35 Dose: 1 mg Promethazine HCl 12.5 mg/ (Sodium Chloride) 50.5 mls @ 100 mls/hr IV Q6H PRN PRN Reason: Nausea/Vomiting Pantoprazole Sodium 80 mg/ (Sodium Chloride) 100 mls @ 10 mls/hr IV Q10H REPLACED BY [facility] Last Admin: 06/27/17 10:37 Dose: 10 mls/hr Sodium Chloride (Normal Saline) 1,000 mls @ 125 mls/hr IV ASDIRECTED REPLACED BY [facility] Last Admin: 06/27/17 14:29 Dose: 125 mls/hr Levothyroxine Sodium (Synthroid) 100 mcg PO ACBRK REPLACED BY [facility] Last Admin: 06/27/17 05:23 Dose: 100 mcg Lorazepam (Ativan) 0.25 mg IV Q6H PRN PRN Reason: Anxiety Magnesium Oxide (Magnesium Oxide) 400 mg PO BID [facility]PL[facility]ED [facility] Stop: 06/27/17 21:01 Last Admin: 06/27/17 11:18 Dose: 400 mg Magnesium Sulfate (Pharmacy To Dose - Magnesium Replacement) 0 dose .XX ASDIRECTED PRN PRN Reason: RX TO WATCH MAG LEVELS Metoprolol Tartrate (Lopressor) 5 mg IVPUSH Q4H PRN PRN Reason: Tachycardia Last Admin: 06/27/17 05:10 Dose: 5 mg Metoprolol Tartrate (Lopressor) 25 mg PO Q12HR REPLACED BY [facility] Last Admin: 06/27/17 10:21 Dose: 25 mg Miscellaneous Information (Remove Patch) 1 ea TRDERM Q72H REPLACED BY [facility] Non-Formulary Medication (Losartan.) 0.5 tab PO DAILY REPLACED BY [facility] Ondansetron HCl (Zofran) 4 mg IV Q6H PRN PRN Reason: Nausea/Vomiting Last Admin: 06/26/17 21:05 Dose: 4 mg Oxycodone HCl (Oxycodone) 5 mg PO Q4H PRN PRN Reason: Pain (moderate 4-6) Last Admin: 06/27/17 12:23 Dose: 5 mg Polyethylene Glycol (Miralax) 17 gm PO DAILY PRN PRN Reason: Constipation Potassium Chloride (Pharmacy To Dose - Potassium Replacement) 0 dose .XX ASDIRECTED PRN PRN Reason: RX TO WATCH K LEVELS Senna/Docusate Sodium (Senna Plus) 1 tab PO BID PRN PRN Reason: Constipation Sodium Chloride (Saline Flush) 10 ml FLUSH ASDIRECTED PRN PRN Reason: Keep Vein Open Last Admin: 06/26/17 14:20 Dose: 10 ml Sodium Chloride (Saline Flush) 10 ml FLUSH ONETIME PRN PRN Reason: IV FLUSH Last Admin: 06/26/17 17:59 Dose: 10 ml Sucralfate (Carafate) 1 gm PO QID REPLACED BY [facility] Temazepam (Restoril) 7.5 mg PO BEDTIME PRN PRN Reason: Sleep Triamterene/HCTZ (Dyazide 25-37.5 Mg) 1 each PO DAILY REPLACED BY [facility] Last Admin: 06/27/17 10:22 Dose: 1 each Vitamin B Complex/Vitamin C (Super B With Vitamin C) 1 cap PO DAILY [facility] Last Admin: 06/27/17 10:21 Dose: 1 cap Discontinued Medications Diatrizoate Meglum/Diatrizoate Sod (Gastrografin 37%) 120 ml PO ONETIME ONE Stop: 06/26/17 17:48 Last Admin: 06/26/17 17:59 Dose: 100 ml Diltiazem HCl (Diltiazem) 10 mg IVPUSH ONETIME ONE Stop: 06/27/17 10:08 Last Admin: 06/27/17 10:23 Dose: 10 mg Famotidine (Pepcid) 20 mg IVPUSH ONETIME ONE Stop: 06/26/17 13:46 Last Admin: 06/26/17 14:20 Dose: 20 mg Hydromorphone HCl (Dilaudid) 0.5 mg IVPUSH ONETIME ONE Stop: 06/26/17 13:47 Last Admin: 06/26/17 14:16 Dose: 0.5 mg Hydromorphone HCl (Dilaudid) 0.5 mg IVPUSH ONETIME ONE Stop: 06/26/17 15:11 Last Admin: 06/26/17 15:18 Dose: 0.5 mg Sodium Chloride (Normal Saline) 1,000 mls @ 999 mls/hr IV ONETIME ONE Stop: 06/26/17 14:40 Last Admin: 06/26/17 14:43 Dose: Not Given Sodium Chloride (Normal Saline) 1,000 mls @ 100 mls/hr IV ONETIME ONE Stop: 06/26/17 23:43 Last Admin: 06/26/17 14:15 Dose: 100 mls/hr Sodium Chloride (Normal Saline) 500 mls @ 999 mls/hr IV .BOLUS ONE Stop: 06/27/17 11:18 Last Admin: 06/27/17 11:25 Dose: 999 mls/hr Iopamidol (Isovue-300 (61%)) 100 ml IVPUSH ONETIME ONE Stop: 06/26/17 17:48 Last Admin: 06/26/17 17:59 Dose: 100 ml Morphine Sulfate (Morphine) 2 mg IVPUSH ONETIME ONE Stop: 06/26/17 18:25 Last Admin: 01/13/18 18:31 Dose: 2 mg Pantoprazole Sodium (Protonix Iv) 80 mg IVPUSH .BOLUS ONE Stop: 06/26/17 13:42 Last Admin: 06/26/17 14:12 Dose: 80 mg Pantoprazole Sodium (Protonix Iv) Confirm Administered Dose 40 mg .ROUTE .STK -MED ONE Stop: 06/26/17 14:03 Last Admin: 06/26/17 14:02 Dose: Not Given Pantoprazole Sodium (Protonix Iv) Confirm Administered Dose 40 mg .ROUTE .STK -MED ONE Stop: 06/26/17 14:11 Last Admin: 06/26/17 14:43 Dose: Not Given Pantoprazole Sodium (Protonix) 40 mg PO BIDAC REPLACED BY [facility] Last Admin: 06/27/17 05:23 Dose: 40 mg Potassium Chloride (Klor-Con M20) 40 meq PO Q4H [facility] Stop: 06/27/17 15:01 Last Admin: 06/27/17 14:27 Dose: 40 meq Sucralfate (Carafate) 1 gm PO ONETIME ONE Stop: 06/27/17 14:16 Last Admin: 06/27/17 14:28 Dose: 1 gm
[2017-06-27] MEDS ORDERED: Potassium Chloride 10 MEQ in Premix Bag 1 BAG IV SCH (15:30)
[2017-06-27] MEDS ORDERED: fentaNYL 100 MCG/2 ML SDV ONE (15:42)
[2017-06-27] MEDS ORDERED: Midazolam 1 MG/ML 2 ML SDV ONE (15:43)
[2017-06-27] MEDS ORDERED: Ketamine 500 mg/10 ML MDV ONE (15:47)
[2017-06-27] MEDS ORDERED: Simethicone Drops 40 MG/0.6 ML 30 ML Bottle ONE (16:31)
--- NOTE | 2017-06-27 17:02 | PCM.OPNOTE ---
- General Post-Op/Procedure Note Date of Surgery/Procedure: 06/27/17 Operative Procedure(s): EGd with clipping of gastric ulcer Pre Op Diagnosis: GI bleeding major grade I shock Post-Op Diagnosis: Same Anesthesia Technique: MAC Primary Surgeon: Spike Blount EBL in mLs: 0 Complications: None Condition: Good Free Text/Narrative:: Intake & Output 06/27/17 06/27/17 06/27/17 07:59 15:59 23:59 Intake Total 2224 [id number] Output Total 500 200 Balance [id number]
--- NOTE | 2017-06-27 17:18 | PCM48HPAN ---
Post Anesthesia Note - EVALUATION WITHIN 48HRS OF ANESTHETIC Vital Signs in Normal Range: Yes Patient Participated in Evaluation: Yes Respiratory Function Stable: Yes Airway Patent: Yes Cardiovascular Function Stable: Yes Hydration Status Stable: Yes Pain Control Satisfactory: Yes Nausea and Vomiting Control Satisfactory: Yes Mental Status Recovered: Yes
[2017-06-27] MEDS: Sucralfate 1 GM Tab PO SCH ×2 (19:14→21:07)
[2017-06-27] MEDS ORDERED: Sodium Chloride 0.9% 0 ML ONE (19:28)
[2017-06-27] MEDS ORDERED: Sodium Chloride 0.9% 1,000 ML IV SCH (19:30)
[2017-06-27] MEDS: Sodium Chloride 0.9% 100 ML ONE ×2 (19:35→19:36)
[2017-06-27] MEDS ORDERED: Sodium Chloride 0.9% 100 ML IV SCH (22:15)
[2017-06-28] MEDS: HYDROmorphone 1 MG/ML Syringe IVPUSH PRN ×4 (04:18→20:59)
[2017-06-28] MEDS: Sodium Chloride 0.9% 1,000 ML IV SCH (05:19)
[2017-06-28] MEDS: Pantoprazole 80 MG in Sodium Chloride 0.9% 100 ML IV SCH (05:20)
[2017-06-28] MEDS: Levothyroxine 100 MCG Tab PO SCH (06:11)
--- NOTE | 2017-06-28 07:17 | CONS ---
CONSULTING PHYSICIAN: Spike Blount MD DATE OF CONSULTATION: 06/27/2017 HISTORY OF PRESENT ILLNESS: This is an 82-year-old elderly female, who has chronic back pain, who has been taking Naprosyn for severe pain in the back. She had a CT scan showing diffuse degenerative changes, lumbar spine with disc space narrowing and spondylolisthesis at L2-L3, and severe disc narrowing at L4-L5 and L5-S1 with vacuum phenomena. The patient came in to the hospital at about 1 o'clock yesterday after a large, bloody bowel movement and had about three bloody bowel movements from the time of admission to about midnight, 1 large one from midnight until 8, and then about 3 smaller ones between 8 and now. These were all black tarry stools. Her hemoglobin dropped from admission of 10.5 to about 6.9. Her pulse went up to 150, and she had a low blood pressure of 90s. She was given a liter of fluid, blood was typed and crossed for 2 units, and a consult was obtained. The time that I have seen her, she is up and talking well, and receiving blood. The patient's past medical history is that of degenerative joint disease, and need for blood pressure medication and hypothyroid treatment. She has not taken her hypertensive medications. MEDICATIONS: Per medication reconciliation form. REVIEW OF SYSTEMS: No chest pain, shortness of breath, cough, hoarseness, wheezing, fainting, weakness, numbness, or convulsions. GASTROINTESTINAL: She has had some nausea, but no hematemesis, only hematochezia of dark tarry fluid. PAST MEDICAL HISTORY: The patient's past medical history is that of 1. Hypertension. 2. Chronic back pain. 3. Hypothyroidism. 4. Impaired vision. FAMILY HISTORY: Negative. SOCIAL HISTORY: No smoking. No drinking. PHYSICAL EXAMINATION: GENERAL: Reveals an alert and cooperative female. VITAL SIGNS: Pulse is 100, blood pressure is 90, and respirations are normal. SKIN: Warm and dry. NEUROLOGIC: No sensorineural deficit, and she is alert and cooperative. LUNGS: Clear. No rales, rhonchi, fremitus, or dullness. CARDIAC: Heart tones are that of some sinus tachycardia. GASTROINTESTINAL: No abdominal tenderness, guarding, or rebound. DERMATOLOGIC: No mottling of the skin or sweating. ASSESSMENT AND RECOMMENDATIONS: Upper gastrointestinal bleed, likely secondary to Naprosyn, although it could be in the small bowel and less likely in the colon. Her last colonoscopy was about 10 years ago. Given the fact of her constant blood loss, her drop in hemoglobin and her vital signs, I feel that we should move quickly for upper GI endoscopy and possible coagulation of bleeder. I discussed this with the patient risk of perforation, need for a laparotomy, risk of causing additional bleeding, and possibility of the need for angiography if the bleeding is in some other site. I have discussed the option of going to [place], but they adamantly wished to stay here. PLAN: Upper GI, emergent. We will type and cross for another two units of fresh frozen plasma. DAYANA /[id number]
--- NOTE | 2017-06-28 07:24 | CONS ---
CONSULTING PHYSICIAN: Spike Blount MD DATE OF CONSULTATION: 06/27/2017 ADDENDUM: On further assessment, this patient has stage I shock with elevation of her pulse and her decreased blood pressure in the 90s. She is unstable and the situation is unstable, would anticipate a major bleed and we will have to type and cross 2 additional units of packed cells and follow 1 unit of fresh frozen plasma. MMODAL /[id number]
--- NOTE | 2017-06-28 07:24 | OR ---
DATE OF OPERATION: 06/27/2017 SURGEON: Spike Blount MD PREOPERATIVE DIAGNOSIS: Upper bleed major with grade 1 shock. POSTOPERATIVE DIAGNOSIS: Upper bleed major with grade 1 shock. OPERATION PERFORMED: Esophagogastroduodenoscopy with application of clips to a gastric ulcer done under IV sedation. FINDINGS: Superficial erosions in the antrum and then pyloric channel, and on the lesser curvature, an ulcer with an adherent clot. No active bleeding. There are also esophageal erosions. GE junction located about 28 cm. There is no hiatal hernia. Second portion of the duodenal bulb was free of any active disease as was the body, cardia, and fundus of the stomach. The gastric ulcer had a firm adherent clot that was black with a partial dry base. It measured approximately 0.5 cm across, located on the lesser curvature. DESCRIPTION OF PROCEDURE: The patient taken to the operating room, placed in a supine position, connected to monitoring equipment, given IV sedation, placed in left lateral position. Bite block was inserted. Video Olympus gastroscope placed in the posterior oropharynx, under direct vision threaded past the cricopharyngeus down the esophagus into the stomach. Gastric pool was aspirated and scope advanced through the pylorus to the second portion of the duodenum. Second portion of the duodenum was unremarkable as was the duodenal bulb, but at the gastric there was erosions without any active bleeding in the antrum and pyloric channel. On the lesser curvature, there was a gastric ulcer with an adherent black clot as described above. It was not actively bleeding. However, in this patient with possible bleeding, 3 clips were placed on this. J-maneuver was performed that was unremarkable, and the GE junction was viewed and it was negative. Other than gastric esophageal erosions from esophagitis, the rest of the esophagus was unremarkable. The patient tolerated the procedure and was sent to the recovery room in a stable condition and will be transferred to the ICU for close observation. ANESTHESIA: ESTIMATED BLOOD LOSS: 0 mL MMODAL /[id number]
[2017-06-28] MEDS: Metoprolol Tartrate 25 MG Tab PO SCH (08:07)
[2017-06-28] MEDS: Sucralfate 1 GM Tab PO SCH ×4 (08:08→21:10)
[2017-06-28] MEDS: Hydrochlorothiazide/Triamterene 25-37.5 MG Cap PO SCH (08:08)
[2017-06-28] MEDS: oxyCODONE 5 MG Tab PO PRN (08:08)
[2017-06-28] MEDS: Vitamin B Complex With Vitamin C Cap PO SCH (08:08)
[2017-06-28] MEDS ORDERED: HYDROmorphone 1 MG/ML Syringe IVPUSH ONE (08:46)
--- NOTE | 2017-06-28 08:55 | PCM.PN ---
- General Info Date of Service: 06/28/17 Admission Dx/Problem (Free Text): Admission Diagnosis/Problem Admission Diagnosis/Problem GI bleed not requiring more than 4 units of blood in 24 hours, ICU, or surgery Subjective Update: Follow Up Functional Status: Reports: Tolerating Diet, Ambulating, Urinating. Denies: Pain Controlled, New Symptoms Pain Score: 10 (Worse than 10) - Review of Systems General: Denies: Fever, Weakness, Fatigue, Malaise, Chills HEENT: Reports: No Symptoms Pulmonary: Denies: Shortness of Breath Cardiovascular: Denies: Chest Pain Gastrointestinal: Denies: Abdominal Pain, Decreased Appetite, Hematochezia, Melena, Nausea, Vomiting Genitourinary: Reports: No Symptoms Musculoskeletal: Reports: Back Pain Skin: Denies: Cyanosis, Mottled, Pallor, Diaphoresis Neurological: Denies: Confusion, Difficulty Walking, Weakness, Gait Disturbance Psychiatric: Reports: Depression, Anxiety, Hallucinations. Denies: Agitation Systems Review Comment:: No overnight or acute issues. She did not sleep well due to back pain. She is however tolerating her current diet. - Patient Data Vitals - Most Recent: Last Vital Signs Temp 36.4 C 06/28/17 08:00 Pulse 69 06/28/17 08:07 Resp 14 06/28/17 08:00 BP 139/73 06/28/17 08:07 Pulse Ox 99 06/28/17 08:00 Weight - Most Recent: 58.128 kg I&O - Last 24 Hours: Intake & Output 06/27/17 06/28/17 06/28/17 22:59 06:59 14:59 Intake Total 3600 1764 100 Output Total 300 570 175 Balance 3300 1194 -75 Lab Results Last 24 Hours: Laboratory Results - last 24 hr 06/27/17 06/27/17 06/27/17 Range/Units 03:05 13:11 13:11 Hgb 10.1 L 6.9 L* (11.2-15.7) gm/L Hct 29.9 L 21.4 L (34.1-44.9) % Sodium (136-145) mEq/L Potassium (3.5-5.1) mEq/L Chloride (98-107) mEq/L Carbon Dioxide (21-32) mEq/L Anion Gap (5-15) BUN (7-18) mg/dL Creatinine (0.55-1.02) mg/dL Est Cr Clr Drug Dosing mL/min Estimated GFR (MDRD) (>60) mL/min BUN/Creatinine Ratio (14-18) Glucose (83-115) mg/dL Calcium (8.5-10.1) mg/dL Magnesium (1.8-2.4) mg/dl Blood Type A NEGATIVE Gel Antibody Screen Negative Crossmatch See Detail 06/28/17 Range/Units 08:08 Hgb (11.2-15.7) gm/L Hct (34.1-44.9) % Sodium 141 (136-145) mEq/L Potassium 3.7 (3.5-5.1) mEq/L Chloride 107 (98-107) mEq/L Carbon Dioxide 26 (21-32) mEq/L Anion Gap 11.7 (5-15) BUN 20 H (7-18) mg/dL Creatinine 0.7 (0.55-1.02) mg/dL Est Cr Clr Drug Dosing 45.14 mL/min Estimated GFR (MDRD) > 60 (>60) mL/min BUN/Creatinine Ratio 28.6 H (14-18) Glucose 102 (83-115) mg/dL Calcium 7.5 L (8.5-10.1) mg/dL Magnesium 1.9 (1.8-2.4) mg/dl Blood Type Gel Antibody Screen Crossmatch Med Orders - Current: Current Medications Acetaminophen (Tylenol) 650 mg PO Q4H PRN PRN Reason: Pain (Mild 1-3)/fever Albuterol/Ipratropium (Duoneb 3.0-0.5 Mg/3 Ml) 3 ml NEB Q4H PRN PRN Reason: Shortness Of Breath/wheezing Aspirin (Halfprin) 81 mg PO DAILY [facility] Last Admin: 06/28/17 08:07 Dose: 81 mg Bisacodyl (Dulcolax) 5 mg PO DAILY PRN PRN Reason: Constipation Docusate Sodium (Colace) 100 mg PO BID PRN PRN Reason: Constipation Fentanyl (Duragesic) 12 mcg TRDERM Q72H [facility] Last Admin: 06/26/17 20:51 Dose: 12 mcg Hydralazine HCl (Apresoline) 10 mg IVPUSH Q4H PRN PRN Reason: Hypertension Hydromorphone HCl (Dilaudid) 1 mg IVPUSH Q4H PRN PRN Reason: Pain (severe 7-10) Last Admin: 06/28/17 04:18 Dose: 1 mg Promethazine HCl 12.5 mg/ (Sodium Chloride) 50.5 mls @ 100 mls/hr IV Q6H PRN PRN Reason: Nausea/Vomiting Pantoprazole Sodium 80 mg/ (Sodium Chloride) 100 mls @ 10 mls/hr IV Q10H [facility] Last Admin: 06/28/17 05:20 Dose: 10 mls/hr Sodium Chloride (Normal Saline) 1,000 mls @ 125 mls/hr IV ASDIRECTED [facility] Last Admin: 06/28/17 05:19 Dose: 125 mls/hr Sodium Chloride (Normal Saline) 1,000 mls @ 50 mls/hr IV ASDIRECTED [facility] Last Admin: 06/28/17 01:47 Dose: 50 mls/hr Levothyroxine Sodium (Synthroid) 100 mcg PO ACBRK [facility] Last Admin: 06/28/17 06:11 Dose: 100 mcg Lorazepam (Ativan) 0.25 mg IV Q6H PRN PRN Reason: Anxiety Magnesium Sulfate (Pharmacy To Dose - Magnesium Replacement) 0 dose .XX ASDIRECTED PRN PRN Reason: RX TO WATCH MAG LEVELS Metoprolol Tartrate (Lopressor) 5 mg IVPUSH Q4H PRN PRN Reason: Tachycardia Last Admin: 06/27/17 05:10 Dose: 5 mg Metoprolol Tartrate (Lopressor) 25 mg PO Q12HR [facility] Last Admin: 06/28/17 08:07 Dose: 25 mg Miscellaneous Information (Remove Patch) 1 ea TRDERM Q72H [facility] Non-Formulary Medication (Losartan.) 0.5 tab PO DAILY [facility] Ondansetron HCl (Zofran) 4 mg IV Q6H PRN PRN Reason: Nausea/Vomiting Last Admin: 06/26/17 21:05 Dose: 4 mg Oxycodone HCl (Oxycodone) 5 mg PO Q4H PRN PRN Reason: Pain (moderate 4-6) Last Admin: 06/28/17 08:08 Dose: 5 mg Polyethylene Glycol (Miralax) 17 gm PO DAILY PRN PRN Reason: Constipation Potassium Chloride (Pharmacy To Dose - Potassium Replacement) 0 dose .XX ASDIRECTED PRN PRN Reason: RX TO WATCH K LEVELS Senna/Docusate Sodium (Senna Plus) 1 tab PO BID PRN PRN Reason: Constipation Sodium Chloride (Saline Flush) 10 ml FLUSH ASDIRECTED PRN PRN Reason: Keep Vein Open Last Admin: 06/26/17 14:20 Dose: 10 ml Sodium Chloride (Saline Flush) 10 ml FLUSH ONETIME PRN PRN Reason: IV FLUSH Last Admin: 06/26/17 17:59 Dose: 10 ml Sucralfate (Carafate) 1 gm PO QID [facility] Last Admin: 06/28/17 08:08 Dose: 1 gm Temazepam (Restoril) 7.5 mg PO BEDTIME PRN PRN Reason: Sleep Last Admin: 06/27/17 23:25 Dose: 7.5 mg Triamterene/HCTZ (Dyazide 25-37.5 Mg) 1 each PO DAILY [facility] Last Admin: 06/28/17 08:08 Dose: 1 each Vitamin B Complex/Vitamin C (Super B With Vitamin C) 1 cap PO DAILY [facility] Last Admin: 06/28/17 08:08 Dose: 1 cap Discontinued Medications Diatrizoate Meglum/Diatrizoate Sod (Gastrografin 37%) 120 ml PO ONETIME ONE Stop: 06/26/17 17:48 Last Admin: 06/26/17 17:59 Dose: 100 ml Diltiazem HCl (Diltiazem) 10 mg IVPUSH ONETIME ONE Stop: 06/27/17 10:08 Last Admin: 06/27/17 10:23 Dose: 10 mg Epinephrine HCl (Adrenalin) Confirm Administered Dose 30 mg .ROUTE .STK-MED ONE Stop: 06/27/17 15:11 Epinephrine HCl (Adrenalin) Confirm Administered Dose 2 mg .ROUTE .STK-MED ONE Stop: 06/27/17 15:11 Famotidine (Pepcid) 20 mg IVPUSH ONETIME ONE Stop: 06/26/17 13:46 Last Admin: 06/26/17 14:20 Dose: 20 mg Fentanyl (Sublimaze) Confirm Administered Dose 100 mcg .ROUTE .STK-MED ONE Stop: 06/27/17 15:43 Hydromorphone HCl (Dilaudid) 0.5 mg IVPUSH ONETIME ONE Stop: 06/26/17 13:47 Last Admin: 06/26/17 14:16 Dose: 0.5 mg Hydromorphone HCl (Dilaudid) 0.5 mg IVPUSH ONETIME ONE Stop: 06/26/17 15:11 Last Admin: 06/26/17 15:18 Dose: 0.5 mg Hydromorphone HCl (Dilaudid) 0.5 mg IVPUSH ONETIME ONE Stop: 06/28/17 08:47 Sodium Chloride (Normal Saline) 1,000 mls @ 999 mls/hr IV ONETIME ONE Stop: 06/26/17 14:40 Last Admin: 06/26/17 14:43 Dose: Not Given Sodium Chloride (Normal Saline) 1,000 mls @ 100 mls/hr IV ONETIME ONE Stop: 06/26/17 23:43 Last Admin: 06/26/17 14:15 Dose: 100 mls/hr Sodium Chloride (Normal Saline) 500 mls @ 999 mls/hr IV .BOLUS ONE Stop: 06/27/17 11:18 Last Admin: 06/27/17 11:25 Dose: 999 mls/hr Potassium Chloride 10 meq/ (Premix) 100 mls @ 100 mls/hr IV Q1H [facility] Stop: 06/27/17 16:29 Last Admin: 06/27/17 15:48 Dose: 100 mls/hr Sodium Chloride (Normal Saline) Confirm Administered Dose 100 mls @ as directed .ROUTE .STK-MED ONE Stop: 06/27/17 18:50 Last Admin: 06/27/17 19:35 Dose: 25 ml Sodium Chloride (Normal Saline) Confirm Administered Dose 100 mls @ as directed .ROUTE .STK-MED ONE Stop: 06/27/17 19:29 Sodium Chloride (Normal Saline) 100 mls @ 25 mls/hr IV ASDIRECTED [facility] Last Admin: 06/27/17 23:30 Dose: 25 mls/hr Iopamidol (Isovue-300 (61%)) 100 ml IVPUSH ONETIME ONE Stop: 06/26/17 17:48 Last Admin: 06/26/17 17:59 Dose: 100 ml Ketamine HCl (Ketalar) Confirm Administered Dose 500 mg .ROUTE .STK-MED ONE Stop: 06/27/17 15:48 Magnesium Oxide (Magnesium Oxide) 400 mg PO BID [facility] Stop: 06/27/17 21:01 Last Admin: 06/27/17 21:06 Dose: 400 mg Midazolam HCl (Versed 1 Mg/Ml) Confirm Administered Dose 2 mg .ROUTE .STK-MED ONE Stop: 06/27/17 15:44 Morphine Sulfate (Morphine) 2 mg IVPUSH ONETIME ONE Stop: 06/26/17 18:25 Last Admin: 06/26/17 18:31 Dose: 2 mg Pantoprazole Sodium (Protonix Iv) 80 mg IVPUSH .BOLUS ONE Stop: 06/26/17 13:42 Last Admin: 06/26/17 14:12 Dose: 80 mg Pantoprazole Sodium (Protonix Iv) Confirm Administered Dose 40 mg .ROUTE .STK -MED ONE Stop: 06/26/17 14:03 Last Admin: 06/26/17 14:02 Dose: Not Given Pantoprazole Sodium (Protonix Iv) Confirm Administered Dose 40 mg .ROUTE .STK -MED ONE Stop: 06/26/17 14:11 Last Admin: 06/26/17 14:43 Dose: Not Given [facility]) [facility] Last Admin: 06/27/17 05:23 Dose: 40 mg Potassium Chloride (Klor-Con M20) 40 meq PO Q4H [facility] Stop: 06/27/17 15:01 Last Admin: 06/27/17 14:27 Dose: 40 meq Simethicone (Infants' Gas Relief) Confirm Administered Dose 2,000 mg .ROUTE .STK -MED ONE Stop: 06/27/17 16:32 Last Admin: 06/27/17 16:30 Dose: 10 mg Sodium Chloride (Normal Saline) Confirm Administered Dose 50 ml .ROUTE .STK-MED ONE Stop: 06/27/17 15:11 Sucralfate (Carafate) 1 gm PO ONETIME ONE Stop: 06/27/17 14:16 Last Admin: 06/27/17 14:28 Dose: 1 gm - Exam General: Alert, Oriented, Cooperative, No Acute Distress HEENT: Pupils Equal, Pupils Reactive, EOMI, Mucous Membr. Moist/[place] Neck: Supple, Trachea Midline, No JVD Lungs: Clear to Auscultation, Normal Respiratory Effort Cardiovascular: Regular Rate, Regular Rhythm GI/Abdominal Exam: Normal Bowel Sounds, Soft, Non-Tender, No Organomegaly, No Distention, No Abnormal Bruit (Female) Exam: Deferred Back Exam: Normal Inspection, Decreased Range of Motion, Vertebral Tenderness Extremities: Normal Inspection, Normal Range of Motion, Non-Tender, No Pedal Edema, Normal Capillary Refill Peripheral Pulses: 2+: Dorsalis Pedis (L), Dorsalis Pedis (R) Skin: Warm, Dry, Intact Neurological: No New Focal Deficit Psy/Mental Status: Alert, Normal Affect, Normal Mood - Problem List Review Problem List Initiated/Reviewed/Updated: Yes - My Orders Last 24 Hours: My Active Orders 06/27/17 09:00 Aspirin [Halfprin] 81 mg PO DAILY HCTZ/Triamterene [Dyazide 25-37.5 MG] 1 each PO DAILY Losartan. 0.5 tab PO DAILY Metoprolol Tartrate [Lopressor] 25 mg PO Q12HR Pantoprazole [ProTONIX IV] 80 mg Sodium Chloride 0.9% [Normal Saline] 100 ml IV Q10H Vitamin B Complex with C [Super B With Vitamin C] 1 cap PO DAILY 06/27/17 11:00 Sodium Chloride 0.9% [Normal Saline] 1,000 ml IV ASDIRECTED 06/27/17 14:59 EKG 12 Lead [EK] Urgent 06/27/17 17:00 Sucralfate [Carafate] 1 gm PO QID 06/27/17 19:30 Sodium Chloride 0.9% [Normal Saline] 1,000 ml IV ASDIRECTED 06/27/17 20:00 Insert [place] Catheter [Insert Urinary Catheter] [OM.PC] Q24H Urinary Catheter Assessment [RC] Q4HR 06/28/17 08:08 CBC WITH AUTO DIFF [HEME] AM 06/29/17 05:11 BASIC METABOLIC PANEL,BMP [CHEM] AM CBC WITH AUTO DIFF [HEME] AM MAGNESIUM [CHEM] AM 06/29/17 19:30 Remove Patch 1 ea TRDERM Q72H - Plan Plan:: Assessment/Plan: Acute: Melena/Rectal Bleed S/p EGD POD#1 -Likely 2/2 Upper GI/PUD -Risk Factors: ASA and Chronic NSAIDs use due to back pain -Melenic Stools -Has a hx/o Hemorrhoids but no Diverticulosis or Abnormal GI Bleed -Has never had EGD but colonoscopy about 10-20 years ago with benign findings -S?p 4 unit of PRBC and 1 unit of FFP Transfusion -Hgb is 11.1 -Hold ASA and NSAIDs -Received H2B/PPIs in ED; resume PPIs -Called Dr. Nino Severe Spinal Arthropathy/DJD -Pain Medications: scheduled and prn; regimen adjusted -Continue PT/OT -Stool softeners -Scheduled to have back injection with Dr. Sanabria in [place] on WednesdayJul 02 Abdominal/Pelvis CT Scan Abnormal Findings -Diffuse degenerative changes within the lumbar spine with disc space narrowing and spondylolisthesis at L2-L3 2/2 degenerative sapophyseal change -Severe disc space narrowing at L4-L5 and L5-S1 with vacuum phenomena -Scattered degenerative changes seen within the lower thoracic and lumbar spine -Mild scoliosis Resolved: S/p Abdominal Discomfort -Cannot r/o PUD -Abdominal/Pelvis CT scan showed no acute GI findings S/p New Onset of Atrial Fibrillation, HR Fairly controlled -Likely from volume and blood loss -Continue PRN Lopressor and will start Metoprolol 25 mg po BID -Infuse 500 ml bolus x1 now and then start at 125 cc/hr for maintenance -Hold off moving her to ICU -If she does chemically convert, will consider electrical sometime this afternoon S/p Generalized Weakness -Likely from poor intake and anxiety -Continue PT/OT -Supportive Care Chronic: Impaired Vision HTN HLD GERD Migraines Hypothyroidism Severe Spinal Stenosis Back Pain Plan: She hemodynamically and clinically stable Transfer to Med-Surg with Tele Continue current treatment Routine AM Labs Advance diet as tolerated No ASA/NSAIDs DVT PPx: SCDs GI PPx: PPIs Code status: DNR/DNI Possible d/c in AM
[2017-06-28] MEDS ORDERED: Magnesium Oxide 400 MG Tab PO ONE (09:15)
[2017-06-28] MEDS: Potassium Chloride 20 MEQ Tab.ER PO SCH ×2 (09:44→13:47)
[2017-06-28] MEDS: Losartan 25 MG Tab PO SCH (09:45)
[2017-06-28] MEDS: Ondansetron 4 MG/2 ML SDV IV PRN (16:40)
[2017-06-28] MEDS ORDERED: Temazepam 15 MG Cap PO PRN (20:11)
[2017-06-28] MEDS: Pantoprazole 40 MG Vial IVPUSH SCH (20:54)
[2017-06-29] MEDS: HYDROmorphone 1 MG/ML Syringe IVPUSH PRN ×3 (05:25→15:31)
[2017-06-29] MEDS: Levothyroxine 100 MCG Tab PO SCH (05:36)
[2017-06-29] MEDS: Hydrochlorothiazide/Triamterene 25-37.5 MG Cap PO SCH (08:07)
[2017-06-29] MEDS: Losartan 25 MG Tab PO SCH (08:07)
[2017-06-29] MEDS: Vitamin B Complex With Vitamin C Cap PO SCH (08:07)
[2017-06-29] MEDS: Sucralfate 1 GM Tab PO SCH ×3 (08:09→17:27)
[2017-06-29] MEDS: Pantoprazole 40 MG Vial IVPUSH SCH (08:10)
[2017-06-29] MEDS: Pantoprazole 80 MG in Sodium Chloride 0.9% 100 ML IV SCH (09:32)
--- NOTE | 2017-06-29 11:10 | PCM.DCSUM1 ---
Discharge Summary - Hospital Course Brief History: This is an 82 year old pleasant elderly white female with past medical history of impaired vision, hypertension, hyperlipidemia, migraines, hypothyroidism, severe spinal arthropathy who presents to the emergency department for evaluation and management of black tarry stool. She was admitted for evaluation of GI Bleed. - Discharge Data Discharge Date: 06/29/17 Discharge Disposition: Home, Self-Care 01 Condition: Good - Discharge Diagnosis/Problem(s) (1) Gastric ulcer due to nonsteroidal anti-inflammatory drug (NSAID) SNOMED Code(s): 051253245 ICD Code: K25.9 - GASTRIC ULCER, UNSP ACUTE OR CHRONIC, W/O HEMOR OR PERF ; T39.395A - ADVERSE EFFECT OF NONSTEROIDAL ANTI-INFLAMMATORY DRUGS, INIT Status: Acute (2) Abdominal discomfort, epigastric SNOMED Code(s): 762696100 ICD Code: R10.13 - EPIGASTRIC PAIN Status: Resolved (3) Melena SNOMED Code(s): 5168544 ICD Code: K92.1 - MELENA Status: Resolved (4) Hypotension due to blood loss SNOMED Code(s): 42996904 ICD Code: I95.89 - OTHER HYPOTENSION Status: Resolved (5) GI bleed SNOMED Code(s): 24509240 ICD Code: K92.2 - GASTROINTESTINAL HEMORRHAGE, UNSPECIFIED Status: Resolved Qualifiers: GI bleed type/associated pathology: gastric ulcer Qualified Code(s): K25.4 - Chronic or unspecified gastric ulcer with hemorrhage (6) Paroxysmal A-fib SNOMED Code(s): 224161505 ICD Code: I48.0 - PAROXYSMAL ATRIAL FIBRILLATION Status: Resolved (7) Generalized weakness SNOMED Code(s): 13338516 ICD Code: R53.1 - WEAKNESS Status: Resolved (8) Severe low back pain SNOMED Code(s): 292646417 ICD Code: M54.5 - LOW BACK PAIN Status: Chronic - Patient Summary/Data Operative Procedure(s) Performed: EGd with clipping of gastric ulcer Complications: None Consults: Consultations 06/26/17 19:16 Consult to Spiritual Care [CONS] Routine OT Evaluation and Treatment [CONS] Routine PT Evaluation and Treatment [CONS] Routine 06/27/17 06:46 Consult to Physician [CONS] Routine Labs Pending at D/C: None Recommended Follow-up Testing/Procedures: None Planned Operative Procedure(s) after DC: None Hospital Course: Patient was primarily admitted for evaluation of GI Bleed. She carried no past medical hx of it but takes routine ASA and NSAIDs for chronic back pain. We felt she had an upper GI bleed with a slow bleed. Dr. Blount was consulted and the patient underwent urgent EGD. The patient tolerated the procedure well w/o any complications. Her hospital course was complicated by new onset of paroxysmal atrial fibrillation. However it quickly resolved after she received adequate blood and a unit of fresh frozen plasma. Her hgb level was noted at 11.9 on the day of discharge. Patient was clinically stable upon released. She was discharged with PPIs and Carafate to take for 30 days. She was also provided a new pain regimen with a reversal agent for opioid overdose until she sees pain clinic this Wednesday. Patient was counseled on opioid abuse and cautioned her on it with alcohol intake. She was further advised to keep her appointment at the pain clinic and to follow up with her PCP in 1 week. The patient expressed understanding and in agreement with the plans as discussed above. All questions were answered. Dr. Elaine was called and updated regarding discharge care plan. - Patient Instructions Diet: Usual Diet as Tolerated Activity: As Tolerated Driving: Do Not Drive Showering/Bathing: May Shower Notify Provider of: Fever, Increased Pain, Nausea and/or Vomiting Other/Special Instructions: - Please take all new medications as directed. - Resume all home medications except NAPROXEN. - Avoid NSAIDs (Motrin, Advil, Ibuprofen, BC's or Goody's)!!! - Avoid alcohol while on fentanyl patch and oxycodone! - Resume home dose Aspirin in 2 weeks. - Recommed keeping your appointment with pain clinic for this coming Wednesday. - Follow up with Dr. Blount in 2 weeks and with you family doctor in 3 weeks. - Call or follow up with your family doctor for any questions or concerns after discharge - Discharge Plan Prescriptions/Med Rec: Bisacodyl 10 mg RC ASDIRECTED PRN #10 supp.rect PRN Reason: Constipation Docusate Sodium/Sennosides [Senokot-S] 2 each PO DAILY #30 tablet fentaNYL [Duragesic] 25 mcg TD Q72H #3 patch Naloxone HCl [Narcan] 4 mg NS ASDIRECTED PRN #1 spray PRN Reason: Other Omeprazole Magnesium 20 mg PO BID #60 capsule. oxyCODONE HCl [Oxaydo] 5 mg PO Q6H PRN #15 tablet.orl PRN Reason: Pain Sucralfate [Carafate] 1 gm PO QID #120 tablet Home Medications: Home Meds Aspirin [Halfprin] 81 mg PO DAILY 06/26/17 [History] Levothyroxine [Synthroid] 100 mcg PO DAILY 06/26/17 [History] Simvastatin [Zocor] 20 mg PO DAILY 06/26/17 [History] Triamterene/Hydrochlorothiazid [Triamterene-HCTZ 37.5-25 MG] 1 cap PO DAILY [History] Vitamin B Complex 1 cap PO DAILY 06/26/17 [History] Losartan [Cozaar] 25 mg PO DAILY 06/27/17 [History] Bisacodyl 10 mg RC ASDIRECTED PRN #10 supp.rect 06/29/17 [Rx] Docusate Sodium/Sennosides [Senokot-S] 2 each PO DAILY #30 tablet 06/29/17 [Rx] Naloxone HCl [Narcan] 4 mg NS ASDIRECTED PRN #1 spray 06/29/17 [Rx] Omeprazole Magnesium 20 mg PO BID #60 capsule. 06/29/17 [Rx] Sucralfate [Carafate] 1 gm PO QID #120 tablet 06/29/17 [Rx] fentaNYL [Duragesic] 25 mcg TD Q72H #3 patch 06/29/17 [Rx] oxyCODONE HCl [Oxaydo] 5 mg PO Q6H PRN #15 tablet.orl 06/29/17 [Rx] Patient Handouts: Back Pain, Adult, Gastrointestinal Bleeding Referrals: Jamshid Zimmer MD [Primary Care Provider] - - Discharge Summary/Plan Comment DC Time >30 min.: Yes (45 mins) Discharge Summary/Plan Comment: Discharge to Home - General Info Date of Service: 06/29/17 Admission Dx/Problem (Free Text: Admission Diagnosis/Problem Admission Diagnosis/Problem GI bleed not requiring more than 4 units of blood in 24 hours, ICU, or surgery Subjective Update: Follow Up Functional Status: Reports: Pain Controlled, Tolerating Diet, Ambulating, Urinating. Denies: New Symptoms - Review of Systems General: Denies: Fever, Weakness, Fatigue, Malaise, Chills HEENT: Reports: No Symptoms Pulmonary: Denies: Shortness of Breath Cardiovascular: Denies: Chest Pain Gastrointestinal: Denies: Abdominal Pain, Nausea, Vomiting Genitourinary: Reports: No Symptoms Musculoskeletal: Reports: Back Pain Skin: Denies: Cyanosis, Jaundice, Mottled, Pallor, Diaphoresis, Rash Neurological: Denies: Confusion, Difficulty Walking, Weakness, Gait Disturbance Psychiatric: Denies: Depression, Anxiety, Agitation, Hallucinations - Patient Data Vitals - Most Recent: Last Vital Signs Temp 37.2 C 06/29/17 08:13 Pulse 95 06/29/17 08:13 Resp 14 06/29/17 08:13 BP 132/73 06/29/17 08:13 Pulse Ox 95 06/29/17 08:13 Weight - Most Recent: 60.555 kg I&O - Last 24 hours: Intake & Output 06/28/17 06/29/17 06/29/17 22:59 06:59 14:59 Intake Total 1600 180 Output Total 725 1125 350 Balance 875 1125 -170 Lab Results - Last 24 hrs: Laboratory Results - last 24 hr 06/29/17 06/29/17 Range/Units 05:53 05:53 WBC 6.63 (3.98-10.04) K/mm3 RBC 3.86 L (3.98-5.22) M/mm3 Hgb 11.9 (11.2-15.7) gm/L Hct 35.7 (34.1-44.9) % MCV 92.5 (79.4-94.8) fl MCH 30.8 (25.6-32.2) pg MCHC 33.3 (32.2-35.5) g/dl RDW Std Deviation 57.3 H (36.4-46.3) fL Plt Count 103 L (182-369) K/mm3 MPV 9.1 L (9.4-12.3) fl Neut % (Auto) 72.0 H (34.0-71.1) % Lymph % (Auto) 14.3 L (19.3-51.7) % [place] % (Auto) 10.3 (4.7-12.5) % Eos % (Auto) 2.6 (0.7-5.8) Baso % (Auto) 0.3 (0.1-1.2) % Neut # (Auto) 4.78 (1.56-6.13) K/mm3 Lymph # (Auto) 0.95 L (1.18-3.74) K/mm3 [place] # (Auto) 0.68 H (0.24-0.36) K/mm3 Eos # (Auto) 0.17 (0.04-0.36) K/mm3 Baso # (Auto) 0.02 (0.01-0.08) K/mm3 Manual Slide Review Not Reportable Sodium 139 (136-145) mEq/L Potassium 4.1 (3.5-5.1) mEq/L Chloride 107 (98-107) mEq/L Carbon Dioxide 26 (21-32) mEq/L Anion Gap 10.1 (5-15) BUN 9 (7-18) mg/dL Creatinine 0.7 (0.55-1.02) mg/dL Est Cr Clr Drug Dosing 45.14 mL/min Estimated GFR (MDRD) > 60 (>60) mL/min BUN/Creatinine Ratio 12.9 L (14-18) Glucose 114 (83-115) mg/dL Calcium 7.8 L (8.5-10.1) mg/dL Magnesium 2.0 (1.8-2.4) mg/dl Med Orders - Current: Current Medications Acetaminophen (Tylenol) 650 mg PO Q4H PRN PRN Reason: Pain (Mild 1-3)/fever Albuterol/Ipratropium (Duoneb 3.0-0.5 Mg/3 Ml) 3 ml NEB Q4H PRN PRN Reason: Shortness Of Breath/wheezing Aspirin (Halfprin) 81 mg PO DAILY [facility] Last Admin: 06/28/17 08:07 Dose: 81 mg Bisacodyl (Dulcolax) 5 mg PO DAILY PRN PRN Reason: Constipation Docusate Sodium (Colace) 100 mg PO BID PRN PRN Reason: Constipation Fentanyl (Duragesic) 12 mcg TRDERM Q72H [facility] Last Admin: 06/26/17 20:51 Dose: 12 mcg Hydralazine HCl (Apresoline) 10 mg IVPUSH Q4H PRN PRN Reason: Hypertension Hydromorphone HCl (Dilaudid) 1 mg IVPUSH Q4H PRN PRN Reason: Pain (severe 7-10) Last Admin: 06/29/17 10:17 Dose: 1 mg Promethazine HCl 12.5 mg/ (Sodium Chloride) 50.5 mls @ 100 mls/hr IV Q6H PRN PRN Reason: Nausea/Vomiting Sodium Chloride (Normal Saline) 1,000 mls @ 50 mls/hr IV ASDIRECTED [facility] Last Admin: 06/28/17 01:47 Dose: 50 mls/hr Levothyroxine Sodium (Synthroid) 100 mcg PO ACBRK [facility] Last Admin: 06/29/17 05:36 Dose: 100 mcg Lorazepam (Ativan) 0.25 mg IV Q6H PRN PRN Reason: Anxiety Losartan Potassium (Cozaar) 25 mg PO DAILY [facility] Last Admin: 06/29/17 08:07 Dose: 25 mg Magnesium Sulfate (Pharmacy To Dose - Magnesium Replacement) 0 dose .XX ASDIRECTED PRN PRN Reason: RX TO WATCH MAG LEVELS Metoprolol Tartrate (Lopressor) 5 mg IVPUSH Q4H PRN PRN Reason: Tachycardia Last Admin: 06/27/17 05:10 Dose: 5 mg Miscellaneous Information (Remove Patch) 1 ea TRDERM Q72H [facility] Ondansetron HCl (Zofran) 4 mg IV Q6H PRN PRN Reason: Nausea/Vomiting Last Admin: 06/28/17 16:40 Dose: 4 mg Oxycodone HCl (Oxycodone) 5 mg PO Q4H PRN PRN Reason: Pain (moderate 4-6) Last Admin: 06/28/17 08:08 Dose: 5 mg Pantoprazole Sodium (Protonix Iv) 40 mg IVPUSH Q12H [facility] Last Admin: 06/29/17 08:10 Dose: 40 mg Polyethylene Glycol (Miralax) 17 gm PO DAILY PRN PRN Reason: Constipation Potassium Chloride (Pharmacy To Dose - Potassium Replacement) 0 dose .XX ASDIRECTED PRN PRN Reason: RX TO WATCH K LEVELS Senna/Docusate Sodium (Senna Plus) 1 tab PO BID PRN PRN Reason: Constipation Sodium Chloride (Saline Flush) 10 ml FLUSH ASDIRECTED PRN PRN Reason: Keep Vein Open Last Admin: 06/26/17 14:20 Dose: 10 ml Sodium Chloride (Saline Flush) 10 ml FLUSH ONETIME PRN PRN Reason: IV FLUSH Last Admin: 06/26/17 17:59 Dose: 10 ml Sucralfate (Carafate) 1 gm PO QIDACANDBED [facility] Last Admin: 06/29/17 10:18 Dose: 1 gm Temazepam (Restoril) 15 mg PO BEDTIME PRN PRN Reason: Sleep Last Admin: 06/28/17 21:11 Dose: 15 mg Triamterene/HCTZ (Dyazide 25-37.5 Mg) 1 each PO DAILY [facility] Last Admin: 06/29/17 08:07 Dose: 1 each Vitamin B Complex/Vitamin C (Super B With Vitamin C) 1 cap PO DAILY [facility] Last Admin: 06/29/17 08:07 Dose: 1 cap Discontinued Medications Diatrizoate Meglum/Diatrizoate Sod (Gastrografin 37%) 120 ml PO ONETIME ONE Stop: 06/26/17 17:48 Last Admin: 06/26/17 17:59 Dose: 100 ml Diltiazem HCl (Diltiazem) 10 mg IVPUSH ONETIME ONE Stop: 06/27/17 10:08 Last Admin: 06/27/17 10:23 Dose: 10 mg Epinephrine HCl (Adrenalin) Confirm Administered Dose 30 mg .ROUTE .STK-MED ONE Stop: 06/27/17 15:11 Epinephrine HCl (Adrenalin) Confirm Administered Dose 2 mg .ROUTE .STK-MED ONE Stop: 06/27/17 15:11 Famotidine (Pepcid) 20 mg IVPUSH ONETIME ONE Stop: 06/26/17 13:46 Last Admin: 06/26/17 14:20 Dose: 20 mg Fentanyl (Sublimaze) Confirm Administered Dose 100 mcg .ROUTE .STK-MED ONE Stop: 06/27/17 15:43 Hydromorphone HCl (Dilaudid) 0.5 mg IVPUSH ONETIME ONE Stop: 06/26/17 13:47 Last Admin: 06/26/17 14:16 Dose: 0.5 mg Hydromorphone HCl (Dilaudid) 0.5 mg IVPUSH ONETIME ONE Stop: 06/26/17 15:11 Last Admin: 06/26/17 15:18 Dose: 0.5 mg Hydromorphone HCl (Dilaudid) 0.5 mg IVPUSH ONETIME ONE Stop: 06/28/17 08:47 Last Admin: 06/28/17 08:55 Dose: 0.5 mg Sodium Chloride (Normal Saline) 1,000 mls @ 999 mls/hr IV ONETIME ONE Stop: 06/26/17 14:40 Last Admin: 06/26/17 14:43 Dose: Not Given Sodium Chloride (Normal Saline) 1,000 mls @ 100 mls/hr IV ONETIME ONE Stop: 06/26/17 23:43 Last Admin: 06/26/17 14:15 Dose: 100 mls/hr Pantoprazole Sodium 80 mg/ (Sodium Chloride) 100 mls @ 10 mls/hr IV Q10H [facility] Last Admin: 06/29/17 09:32 Dose: Not Given Sodium Chloride (Normal Saline) 500 mls @ 999 mls/hr IV .BOLUS ONE Stop: 06/27/17 11:18 Last Admin: 06/27/17 11:25 Dose: 999 mls/hr Sodium Chloride (Normal Saline) 1,000 mls @ 125 mls/hr IV ASDIRECTED [facility] Last Admin: 06/28/17 05:19 Dose: 125 mls/hr Potassium Chloride 10 meq/ (Premix) 100 mls @ 100 mls/hr IV Q1H [facility] Stop: 06/27/17 16:29 Last Admin: 06/27/17 15:48 Dose: 100 mls/hr Sodium Chloride (Normal Saline) Confirm Administered Dose 100 mls @ as directed .ROUTE .STK-MED ONE Stop: 06/27/17 18:50 Last Admin: 06/27/17 19:35 Dose: 25 ml Sodium Chloride (Normal Saline) Confirm Administered Dose 100 mls @ as directed .ROUTE .STK-MED ONE Stop: 06/27/17 19:29 Last Admin: 06/28/17 19:28 Dose: Not Given Sodium Chloride (Normal Saline) 100 mls @ 25 mls/hr IV ASDIRECTED [facility] Last Admin: 06/27/17 23:30 Dose: 25 mls/hr Iopamidol (Isovue-300 (61%)) 100 ml IVPUSH ONETIME ONE Stop: 06/26/17 17:48 Last Admin: 06/26/17 17:59 Dose: 100 ml Ketamine HCl (Ketalar) Confirm Administered Dose 500 mg .ROUTE .STK-MED ONE Stop: 06/27/17 15:48 Magnesium Oxide (Magnesium Oxide) 400 mg PO BID [facility] Stop: 06/27/17 21:01 Last Admin: 06/27/17 21:06 Dose: 400 mg Magnesium Oxide (Magnesium Oxide) 400 mg PO ONETIME ONE Stop: 06/28/17 09:16 Last Admin: 06/28/17 09:45 Dose: 400 mg Metoprolol Tartrate (Lopressor) 25 mg PO Q12HR [facility] Last Admin: 06/28/17 08:07 Dose: 25 mg Midazolam HCl (Versed 1 Mg/Ml) Confirm Administered Dose 2 mg .ROUTE .STK-MED ONE Stop: 06/27/17 15:44 Morphine Sulfate (Morphine) 2 mg IVPUSH ONETIME ONE Stop: 06/26/17 18:25 Last Admin: 06/26/17 18:31 Dose: 2 mg Pantoprazole Sodium (Protonix Iv) 80 mg IVPUSH .BOLUS ONE Stop: 06/26/17 13:42 Last Admin: 06/26/17 14:12 Dose: 80 mg Pantoprazole Sodium (Protonix Iv) Confirm Administered Dose 40 mg .ROUTE .STK -MED ONE Stop: 06/26/17 14:03 Last Admin: 06/26/17 14:02 Dose: Not Given Pantoprazole Sodium (Protonix Iv) Confirm Administered Dose 40 mg .ROUTE .STK -MED ONE Stop: 06/26/17 14:11 Last Admin: 06/26/17 14:43 Dose: Not Given Pantoprazole Sodium (Protonix) 40 mg PO BIDAC [facility] Last Admin: 06/27/17 05:23 Dose: 40 mg Potassium Chloride (Klor-Con M20) 40 meq PO Q4H [facility] Stop: 06/27/17 15:01 Last Admin: 06/27/17 14:27 Dose: 40 meq Potassium Chloride (Klor-Con M20) 40 meq PO Q4H [facility] Stop: 06/28/17 14:01 Last Admin: 06/28/17 13:47 Dose: 40 meq Simethicone (Infants' Gas Relief) Confirm Administered Dose 2,000 mg .ROUTE .STK -MED ONE Stop: 06/27/17 16:32 Last Admin: 06/27/17 16:30 Dose: 10 mg Sodium Chloride (Normal Saline) Confirm Administered Dose 50 ml .ROUTE .STK-MED ONE Stop: 06/27/17 15:11 Sucralfate (Carafate) 1 gm PO QID [facility] Last Admin: 06/28/17 08:08 Dose: 1 gm Sucralfate (Carafate) 1 gm PO ONETIME ONE Stop: 06/27/17 14:16 Last Admin: 06/27/17 14:28 Dose: 1 gm Temazepam (Restoril) 7.5 mg PO BEDTIME PRN PRN Reason: Sleep Last Admin: 06/27/17 23:25 Dose: 7.5 mg - Exam General: Reports: Alert, Oriented, Cooperative, No Acute Distress HEENT: Reports: Pupils Equal, Pupils Reactive, EOMI, Mucous Membr. Moist/Plum Branch Neck: Reports: Supple, Trachea Midline, No JVD Lungs: Reports: Clear to Auscultation, Normal Respiratory Effort Cardiovascular: Reports: Regular Rate, Regular Rhythm GI/Abdominal Exam: Normal Bowel Sounds, Soft, Non-Tender, No Organomegaly, No Distention, No Abnormal Bruit (Female) Exam: Deferred Rectal (Female) Exam: Deferred Back Exam: Reports: Normal Inspection, Decreased Range of Motion, Vertebral Tenderness Extremities: Normal Inspection, Normal Range of Motion, Non-Tender, No Pedal Edema, Normal Capillary Refill, Pedal Edema Skin: Reports: Warm, Dry, Intact Neurological: Reports: No New Focal Deficit Psy/Mental Status: Reports: Alert, Normal Affect, Normal Mood *Q Meaningful Use (DIS) - VTE *Q VTE Criteria *Q: - Stroke *Q Stroke Criteria *Q: - AMI *Q AMI Criteria *Q:
[2017-06-29] MEDS ORDERED: fentaNYL 25 MCG/HR Transdermal Patch TRDERM SCH (11:30)
[2017-06-29 15:37] VITALS: BP 133/70
[2017-06-29] MEDS ORDERED: Acetaminophen/Butalbital/Caffeine 325-50-40 MG Tab PO PRN (18:29)
[2017-06-29] MEDS ORDERED: Remove Fentanyl 12 mcg Patch TRDERM SCH (19:30)
[2017-06-30] MEDS ORDERED: Losartan 25 MG Tab PO SCH (09:00)
[2017-06-30] MEDS ORDERED: Simvastatin 20 MG Tab PO SCH (09:00)
== END 2017-06-29 18:45 | disposition home or self-care (01) | DRG 377 ==
LOC: JD.ED 12:55 → UNDOADMIN 18:02 → JD.MS 18:02 → JD.ICU 06-27 17:02
PROVIDERS: ADMIT Internal Medicine; ATTEND Internal Medicine
PROC: 30233N1 Transfusion of Nonautologous Red Blood Cells into Peripheral Vein, Percutaneous Approach (ICD-10-PCS; principal; 2017-06-26)
PROC: 0W3P8ZZ Control Bleeding in Gastrointestinal Tract, Via Natural or Artificial Opening Endoscopic (ICD-10-PCS; 2017-06-27)
DX: K92.1 Melena (principal); R57.8 Other shock; K25.9 Gastric ulcer, unspecified as acute or chronic, without hemorrhage or perforation; T39.395A Adverse effect of other nonsteroidal anti-inflammatory drugs [NSAID], initial encounter; I95.1 Orthostatic hypotension; R53.1 Weakness; I10 Essential (primary) hypertension; E78.5 Hyperlipidemia, unspecified; H54.7 Unspecified visual loss; G89.29 Other chronic pain; M54.9 Dorsalgia, unspecified; Z66 Do not resuscitate; M48.00 Spinal stenosis, site unspecified; D64.9 Anemia, unspecified; I48.0 Paroxysmal atrial fibrillation; E03.9 Hypothyroidism, unspecified; R10.13 Epigastric pain; I95.89 Other hypotension; Z91.011 Allergy to milk products; Z88.0 Allergy status to penicillin; Z91.09 Other allergy status, other than to drugs and biological substances; Z79.82 Long term (current) use of aspirin; Z79.899 Other long term (current) drug therapy
CPT/HCPCS: 36415; 71046; 74019; 74177; 80053; 82272; 82553; 84484; 85025; 85610; 85730; 93005; 96361; 96374; 96375; 99285; C9113; J1170 ×2; J7040; J7050 ×2; Q9963; Q9967; 00731; 36430; 80048; 83735; 85014; 85018; 86850; 86900; 86901; 86922; 93010; 97116-GP; 97162-GP; 97165-GO; 99284-25; A9270; A9270-GY; J0171; J2250; J2270; J2405; J3010; J3480; J3490; J7030; P9016; P9017

== ENCOUNTER 2019-05-24 06:41 | Emergency (ER) | payer MEDICARE, BC ==
[2019-05-24 06:52] VITALS: BP 122/63
--- NOTE | 2019-05-24 07:12 | EDM.PDOC ---
ED HPI GENERAL MEDICAL PROBLEM - General Chief Complaint: Headache Stated Complaint: HEADACHE Time Seen by Provider: 05/24/19 07:01 - History of Present Illness INITIAL COMMENTS - FREE TEXT/NARRATIVE: 84-year-old female presents emergency room with a headache. Patient has history of migraine headaches. This is a typical headache for her however it is a little worse because it is been going on since Wednesday. She's had significant nausea and has not been able to keep her medications down. And as a result her back pain is acting up. She's had no loss of bowel or bladder control she has pain down her right leg going down the back of her legs stopping just above the knee. She denies fevers or chills. She has no history of cardiac problems no history of congestive heart failure. Patient denies any other complaints at this time other than she thinks she has some wax in ears. Headache Pain Score (Numeric/FACES): 10 - Related Data Allergies Allergy/AdvReac Type Severity Reaction Status Date / Time penicillin V Allergy Cannot Verified 05/24/19 07:02 Remember celecoxib AdvReac Fainting Verified 05/24/19 07:02 Dairy Products AdvReac Diarrhea Verified 05/24/19 07:02 Home Meds: Home Meds Aspirin [Halfprin] 81 mg PO DAILY 06/26/17 [History] Simvastatin [Zocor] 20 mg PO DAILY 06/26/17 [History] Triamterene/Hydrochlorothiazid [Triamterene-HCTZ 37.5-25 MG] 1 cap PO DAILY [History] Losartan [Cozaar] 25 mg PO DAILY 06/27/17 [History] Levothyroxine [Synthroid] 100 mcg PO DAILY #0 01/17/18 [Rx] Sucralfate [Carafate] 1 gm PO QIDACANDBED #120 cup 01/17/18 [Rx] Past Medical History HEENT History: Reports: Impaired Vision Cardiovascular History: Reports: High Cholesterol, Hypertension Respiratory History: Reports: None Musculoskeletal History: Reports: Back Pain, Chronic Neurological History: Reports: Migraines Endocrine/Metabolic History: Reports: Hypothyroidism - Infectious Disease History Infectious Disease History: Reports: Chicken Pox, Measles, Shingles - Past Surgical History HEENT Surgical History: Reports: Adenoidectomy, Tonsillectomy Cardiovascular Surgical History: Reports: Varicose GI Surgical History: Reports: Appendectomy, Cholecystectomy Female Surgical History: Reports: Hysterectomy, Other (See Below) Other Female Surgeries/Procedures: "bladder lift with my hysterectomy" Musculoskeletal Surgical History: Reports: Knee Replacement Other Musculoskeletal Surgeries/Procedures:: Bilateral knee replacement Social & Family History - Family History Family Medical History: Noncontributory - Caffeine Use Caffeine Use: Reports: Coffee Other Caffeine Use: decaf coffee-very little ED ROS GENERAL - Review of Systems Review Of Systems: See Below Constitutional: Reports: Chills. Denies: Fever HEENT: Reports: No Symptoms Respiratory: Reports: No Symptoms Cardiovascular: Reports: No Symptoms GI/Abdominal: Reports: Nausea, Vomiting. Denies: Abdominal Pain, Constipation, Diarrhea : Reports: No Symptoms Musculoskeletal: Reports: Other (Routine arthritic pain) Skin: Reports: No Symptoms Neurological: Reports: Headache Psychiatric: Reports: No Symptoms Hematologic/Lymphatic: Reports: No Symptoms Immunologic: Reports: No Symptoms - Physical Exam Exam: See Below Exam Limited By: No Limitations General Appearance: Alert, No Apparent Distress Eye Exam: Bilateral Eye: EOMI, Normal Inspection, PERRL Ears: Normal External Exam, Normal Canal, Other (TMs are partially obstructed due to cerumen) Nose: Normal Inspection, Normal Mucosa, No Blood Throat/Mouth: Normal Inspection, Normal Lips, Normal Gums, Normal Oropharynx, Normal Voice, No Airway Compromise Head Exam: Atraumatic, Normocephalic Neck: Normal Inspection, Supple, Non-Tender, Full Range of Motion. No: Lymphadenopathy (L), Lymphadenopathy (R) Respiratory/Chest: No Respiratory Distress, Lungs Clear, Normal Breath Sounds Cardiovascular: Regular Rate, Rhythm, No Edema, No Murmur GI/Abdominal: Normal Bowel Sounds, Soft, Other (Vague discomfort with palpation patient states it is due to the palpation no guarding rigidity or rebound noted) Neuro Exam (Abbreviated): Alert, Oriented, Normal Cognition, Other (Cranial nerves II through XII grossly intact all muscle groups the upper and lower extremities are equal and appropriate bilaterally cerebellar testing is normal tendon reflex at the brachial radialis is normal. Cranial nerves II through XII grossly intact) Course - Vital Signs Last Recorded V/S: Last Vital Signs Temp 36.6 C 05/24/19 06:50 Pulse 72 05/24/19 08:10 Resp 16 05/24/19 08:15 BP 122/63 05/24/19 06:50 Pulse Ox 95 05/24/19 08:15 - Orders/Labs/Meds Meds: Medications Discontinued Medications Generic Name Dose Route Start Last Admin Trade Name Tera PRLupe Reason Stop Dose Admin Acetaminophen 650 mg 05/24/19 07:17 05/24/19 07:53 Tylenol PO 05/24/19 07:18 650 mg NOW ONE Administration Diphenhydramine HCl 25 mg 05/24/19 07:15 05/24/19 07:31 Benadryl IVPUSH 05/24/19 07:16 25 mg ONETIME ONE Administration Lactated Ringer's 1,000 mls @ 999 mls/hr 05/24/19 07:15 05/24/19 07:31 Ringers, Lactated IV 05/24/19 08:15 999 mls/hr .BOLUS ONE Administration Ondansetron HCl 4 mg 05/24/19 07:15 05/24/19 07:32 Zofran IVPUSH 05/24/19 07:16 4 mg ONETIME ONE Administration Tramadol HCl 50 mg 05/24/19 09:14 05/24/19 09:19 Ultram PO 05/24/19 09:15 50 mg ONETIME ONE Administration - Re-Assessments/Exams Free Text/Narrative Re-Assessment/Exam: 05/24/19 10:21 A she had good improvement with IV fluids Benadryl and Zofran she says about 40 % improvements. She was given some Tylenol was able to keep this down this was followed up with a tramadol and is doing much better at this time is able to sleep. We'll discharge home to rest Departure - Departure Time of Disposition: 10:22 Disposition: Home, Self-Care 01 Clinical Impression: Migraine Clinical Impression: (Ruled Out): Migraine aura, persistent - Discharge Information Referrals: Jamshid Zimmer MD [Primary Care Provider] - Forms: ED Department Discharge Additional Instructions: Return to the emergency room with any questions problems worsening symptoms. Go home and get some sleep. Sepsis Event Note - Evaluation Sepsis Screening Result: No Definite Risk - Focused Exam Vital Signs: Vital Signs Temp Pulse Resp BP Pulse Ox 05/24/19 08:15 16 95 05/24/19 08:10 72 16 88 L 05/24/19 06:50 36.6 C 93 20 122/63 Date Exam was Performed: 05/24/19 Time Exam was Performed: 10:21
[2019-05-24] MEDS ORDERED: Ondansetron 4 MG/2 ML SDV IVPUSH ONE (07:15)
[2019-05-24] MEDS ORDERED: diphenhydrAMINE 50 MG/ML SDV IVPUSH ONE (07:15)
[2019-05-24] MEDS ORDERED: Lactated Ringers 1,000 ML IV ONE (07:15)
[2019-05-24] MEDS ORDERED: Acetaminophen 325 MG Tab PO ONE (07:17)
[2019-05-24 08:22] VITALS: PULSE 72
[2019-05-24] MEDS ORDERED: traMADol 50 MG Tab PO ONE (09:14)
== END 2019-05-24 10:33 | disposition home or self-care (01) ==
LOC: JD.ED 06:41
DX: G43.909 Migraine, unspecified, not intractable, without status migrainosus (principal); E78.00 Pure hypercholesterolemia, unspecified; I10 Essential (primary) hypertension; E03.9 Hypothyroidism, unspecified; Z88.0 Allergy status to penicillin; Z88.6 Allergy status to analgesic agent; Z91.018 Allergy to other foods; Z79.82 Long term (current) use of aspirin; Z79.899 Other long term (current) drug therapy
CPT/HCPCS: 96361; 96374; 96375; 99283; A9270; J1200; J2405; J7120

== ENCOUNTER 2021-10-18 15:57 | Emergency (ER) | payer MEDICARE, BC ==
[2021-10-18 16:29] VITALS: BP 172/84; PULSE 61
[2021-10-18] MEDS ORDERED: Ondansetron 4 MG/2 ML SDV IVPUSH ONE (17:39)
[2021-10-18] MEDS ORDERED: Morphine 2 MG/ML SYRINGE IVPUSH ONE ×2 (17:39→18:50)
[2021-10-18 18:39] LABS: CORONAVIRUS COVID-19 NAA NEGATIVE (NEGATIVE)
== END 2021-10-18 19:35 | disposition other institution (70) ==
LOC: JD.ED 15:57
DX: S06.5X0A Traumatic subdural hemorrhage without loss of consciousness, initial encounter (principal); E78.00 Pure hypercholesterolemia, unspecified; I10 Essential (primary) hypertension; E03.9 Hypothyroidism, unspecified; Z90.49 Acquired absence of other specified parts of digestive tract; Z90.710 Acquired absence of both cervix and uterus; Z79.899 Other long term (current) drug therapy; Z79.82 Long term (current) use of aspirin; Z88.0 Allergy status to penicillin; Z88.6 Allergy status to analgesic agent; Z91.011 Allergy to milk products; Z20.822 Contact with and (suspected) exposure to COVID-19; W19.XXXA Unspecified fall, initial encounter
CPT/HCPCS: 0240U; 70450; 96374; 96375; 96376; 99285; J2270; J2405

== ENCOUNTER 2021-11-03 08:29 | Emergency (ER) | payer MEDICARE, BC ==
[2021-11-03] MEDS ORDERED: Metoclopramide 10 MG/2 ML SDV IVPUSH ONE (08:34)
[2021-11-03] MEDS ORDERED: traMADol 50 MG Tab PO ONE (08:45)
[2021-11-03] MEDS ORDERED: Dextrose 5%-0.9% NaCl 1,000 ML IV SCH (08:45)
[2021-11-03 09:01] VITALS: BP 149/62; PULSE 62
== END 2021-11-03 12:29 | disposition home or self-care (01) ==
LOC: JD.ED 08:29
DX: R25.1 Tremor, unspecified (principal); T50.992A Poisoning by other drugs, medicaments and biological substances, intentional self-harm, initial encounter; I48.91 Unspecified atrial fibrillation; E78.00 Pure hypercholesterolemia, unspecified; I10 Essential (primary) hypertension; E03.9 Hypothyroidism, unspecified; Z88.0 Allergy status to penicillin; Z91.011 Allergy to milk products; Z88.8 Allergy status to other drugs, medicaments and biological substances; Z79.82 Long term (current) use of aspirin; Z79.899 Other long term (current) drug therapy
CPT/HCPCS: 36415; 80053; 81001; 85025; 86140; 96374; 99283; A9270; J2765; J7042

== ENCOUNTER 2022-10-22 13:36 | Inpatient (IN) | payer MEDICARE, BC ==
[2022-10-22] MEDS ORDERED: Sodium Chloride 0.9% 10 ML Syringe FLUSH PRN (14:30)
[2022-10-22] MEDS ORDERED: Ondansetron 4 MG/2 ML SDV IVPUSH ONE ×2 (14:31→16:23)
[2022-10-22] MEDS ORDERED: Sodium Chloride 0.9% 1,000 ML IV STA (14:31)
[2022-10-22 15:17] LABS: BASOPHILS ABSOLUTE AUTO 0.02 K/mm3 (0.01-0.08); BASOPHILS PERCENT AUTO 0.2 % (0.1-1.2); EOSINOPHILS ABSOLUTE AUTO 0.02 K/mm3 (0.04-0.36); EOSINOPHILS PERCENT AUTO 0.2 (0.7-5.8); HEMATOCRIT 29.3 % (34.1-44.9); HEMOGLOBIN 9.7 gm/dl (11.2-15.7); IMMATURE GRAN ABSOLUTE AUTO 0.05 K/mm3 (0.00-0.10); IMMATURE GRAN PERCENT AUTO 0.4 % (<=1.0); LYMPHOCYTES ABSOLUTE AUTO 0.69 K/mm3 (1.18-3.74); LYMPHOCYTES PERCENT AUTO 5.3 % (19.3-51.7); MEAN CORPUSCULAR HEMOGLOBIN 28.5 pg (25.6-32.2); MEAN CORPUSCULAR HGB CONC 33.1 g/dl (32.2-35.5); MEAN CORPUSCULAR VOLUME 86.2 fl (79.4-94.8); MEAN PLATELET VOLUME 7.6 fl (9.4-12.3); MONOCYTES ABSOLUTE AUTO 0.54 K/mm3 (0.24-0.36); MONOCYTES PERCENT AUTO 4.2 % (4.7-12.5); NEUTROPHILS ABSOLUTE AUTO 11.61 K/mm3 (1.56-6.13); NEUTROPHILS PERCENT AUTO 89.7 % (34.0-71.1); PLATELET COUNT,PLT 450 K/mm3 (182-369); WHITE BLOOD CELL COUNT,WBC 12.93 K/mm3 (3.98-10.04)
[2022-10-22 15:49] LABS: A/G RATIO 0.6 (1-2); ALBUMIN 2.6 g/dl (3.4-5.0); BILIRUBIN TOTAL 0.3 mg/dL (0.2-1.0); BUN/CREATININE RATIO 18.6 (14-18); C-REACTIVE PROTEIN 4.7 mg/dL (<1.0); CALCIUM 8.4 mg/dL (8.5-10.1); CREATININE 0.7 mg/dL (0.55-1.02); EST CRCL DRUG DOSING (CG) 39.01 mL/min; MAGNESIUM 1.3 mg/dL (1.8-2.4); PROTEIN TOTAL,TP 7.2 g/dl (6.4-8.2)
[2022-10-22 16:13] LABS: APPEARANCE,URINE CLEAR (Clear); BILIRUBIN,URINE NEGATIVE (Negative); COLOR,URINE YELLOW (Yellow); GLUCOSE,URINE NEGATIVE (Negative); KETONES,URINE NEGATIVE (Negative); LEUKOCYTE ESTERASE,URINE NEGATIVE (Negative); NITRITE,URINE NEGATIVE (Negative); OCCULT BLOOD,URINE NEGATIVE (Negative); PROTEIN,URINE 2+ (Negative); UROBILINOGEN,URINE 0.2 (0.2-1.0)
[2022-10-22] MEDS ORDERED: Magnesium Sulfate/Water 4 GM in Premix Bag 1 BAG IV ONE (16:20)
[2022-10-22] MEDS: NS with KCl 40mEq 1,000 ML IV SCH (16:36)
[2022-10-22 16:40] LABS: BACTERIA,URINE FEW /hpf (FEW); HYALINE CASTS,URINE 0-5 /lpf (0-5); MUCUS,URINE RARE /hpf (FEW); RBC,URINE 0-5 /hpf (0-5); SQUAMOUS EPITHELIAL CELLS,UR 0-5 /hpf (0-5); WBC,URINE 0-5 /hpf (0-5)
[2022-10-22] MEDS ORDERED: Promethazine 12.5 MG in Sodium Chloride 0.9% 50 ML IV PRN (16:49)
[2022-10-22] MEDS ORDERED: oxyCODONE 5 MG Tab PO PRN (16:49)
[2022-10-22] MEDS: Heparin Sodium 5,000 Units/ML Vial SUBCUT SCH (18:30)
[2022-10-23] MEDS: Heparin Sodium 5,000 Units/ML Vial SUBCUT SCH ×3 (00:28→18:24)
[2022-10-23] MEDS: NS with KCl 40mEq 1,000 ML IV SCH ×3 (03:44→23:46)
[2022-10-23 05:54] LABS: BASOPHILS ABSOLUTE AUTO 0.03 K/mm3 (0.01-0.08); BASOPHILS PERCENT AUTO 0.2 % (0.1-1.2); EOSINOPHILS ABSOLUTE AUTO 0.14 K/mm3 (0.04-0.36); HEMATOCRIT 31.7 % (34.1-44.9); HEMOGLOBIN 10.6 gm/dl (11.2-15.7); IMMATURE GRAN ABSOLUTE AUTO 0.06 K/mm3 (0.00-0.10); IMMATURE GRAN PERCENT AUTO 0.4 % (<=1.0); LYMPHOCYTES ABSOLUTE AUTO 0.99 K/mm3 (1.18-3.74); LYMPHOCYTES PERCENT AUTO 7.1 % (19.3-51.7); MEAN CORPUSCULAR HEMOGLOBIN 28.9 pg (25.6-32.2); MEAN CORPUSCULAR HGB CONC 33.4 g/dl (32.2-35.5); MEAN CORPUSCULAR VOLUME 86.4 fl (79.4-94.8); MEAN PLATELET VOLUME 7.6 fl (9.4-12.3); MONOCYTES ABSOLUTE AUTO 1.18 K/mm3 (0.24-0.36); MONOCYTES PERCENT AUTO 8.5 % (4.7-12.5); NEUTROPHILS ABSOLUTE AUTO 11.53 K/mm3 (1.56-6.13); NEUTROPHILS PERCENT AUTO 82.8 % (34.0-71.1); PLATELET COUNT,PLT 517 K/mm3 (182-369); RED BLOOD CELL COUNT 3.67 M/mm3 (3.98-5.22); WHITE BLOOD CELL COUNT,WBC 13.93 K/mm3 (3.98-10.04)
[2022-10-23 06:13] LABS: A/G RATIO 0.5 (1-2); ALBUMIN 2.5 g/dl (3.4-5.0); ANION GAP 10.4 (5-15); BILIRUBIN TOTAL 0.2 mg/dL (0.2-1.0); BUN/CREATININE RATIO 13.3 (14-18); CALCIUM 8.1 mg/dL (8.5-10.1); CREATININE 0.6 mg/dL (0.55-1.02); EST CRCL DRUG DOSING (CG) 45.52 mL/min; POTASSIUM,K 3.4 mEq/L (3.5-5.1); PROTEIN TOTAL,TP 7.2 g/dl (6.4-8.2)
[2022-10-23] MEDS: Acetaminophen 325 MG Tab PO PRN ×3 (08:24→23:46)
[2022-10-23] MEDS ORDERED: Non-Formulary Medication 1 Each (Naloxone 4 MG Spray) NAS PRN (08:41)
[2022-10-23] MEDS ORDERED: Hydrochlorothiazide 12.5 MG Cap PO SCH (09:00)
[2022-10-23] MEDS ORDERED: Mirabegron 25 MG Tab.Er PO SCH (09:00)
[2022-10-23] MEDS ORDERED: RIBOFLAVIN 100 MG PO SCH (09:00)
[2022-10-23] MEDS: atorvaSTATin 20 MG Tab PO SCH (10:03)
[2022-10-23] MEDS: traMADol 50 MG Tab PO PRN ×2 (10:05→18:24)
[2022-10-23] MEDS: Losartan 50 MG Tab PO SCH (10:05)
[2022-10-23] MEDS: Famotidine 20 MG Tab PO SCH (10:05)
[2022-10-23] MEDS: Azithromycin 250 MG Tab PO SCH (10:07)
[2022-10-23] MEDS: Aspirin 81 MG Tab.EC PO SCH (10:08)
[2022-10-23] MEDS: Cholecalciferol (Vitamin D3) 5,000 UNIT Cap PO SCH (10:22)
[2022-10-23] MEDS: Temazepam 7.5 MG Cap PO PRN (21:39)
[2022-10-24] MEDS: traMADol 50 MG Tab PO PRN ×3 (00:03→15:48)
[2022-10-24] MEDS: Levothyroxine 88 MCG Tab PO SCH (05:54)
[2022-10-24 05:56] LABS: BASOPHILS ABSOLUTE AUTO 0.04 K/mm3 (0.01-0.08); BASOPHILS PERCENT AUTO 0.4 % (0.1-1.2); EOSINOPHILS ABSOLUTE AUTO 0.21 K/mm3 (0.04-0.36); EOSINOPHILS PERCENT AUTO 2.1 (0.7-5.8); IMMATURE GRAN ABSOLUTE AUTO 0.03 K/mm3 (0.00-0.10); IMMATURE GRAN PERCENT AUTO 0.3 % (<=1.0); LYMPHOCYTES ABSOLUTE AUTO 0.83 K/mm3 (1.18-3.74); LYMPHOCYTES PERCENT AUTO 8.3 % (19.3-51.7); MEAN CORPUSCULAR HEMOGLOBIN 28.8 pg (25.6-32.2); MEAN CORPUSCULAR HGB CONC 32.3 g/dl (32.2-35.5); MEAN CORPUSCULAR VOLUME 89.3 fl (79.4-94.8); MEAN PLATELET VOLUME 7.9 fl (9.4-12.3); MONOCYTES ABSOLUTE AUTO 1.01 K/mm3 (0.24-0.36); MONOCYTES PERCENT AUTO 10.1 % (4.7-12.5); NEUTROPHILS ABSOLUTE AUTO 7.91 K/mm3 (1.56-6.13); NEUTROPHILS PERCENT AUTO 78.8 % (34.0-71.1); PLATELET COUNT,PLT 458 K/mm3 (182-369); RED BLOOD CELL COUNT 3.47 M/mm3 (3.98-5.22); WHITE BLOOD CELL COUNT,WBC 10.03 K/mm3 (3.98-10.04)
[2022-10-24 05:59] LABS: ANION GAP 12.9 (5-15); CALCIUM 8.3 mg/dL (8.5-10.1); CREATININE 0.6 mg/dL (0.55-1.02); EST CRCL DRUG DOSING (CG) 45.52 mL/min; MAGNESIUM 1.8 mg/dL (1.8-2.4); POTASSIUM,K 4.9 mEq/L (3.5-5.1)
[2022-10-24] MEDS: Heparin Sodium 5,000 Units/ML Vial SUBCUT SCH ×3 (08:03→18:37)
[2022-10-24] MEDS: Azithromycin 250 MG Tab PO SCH (08:04)
[2022-10-24] MEDS: Acetaminophen 325 MG Tab PO PRN ×2 (08:04→15:49)
[2022-10-24] MEDS: Cholecalciferol (Vitamin D3) 5,000 UNIT Cap PO SCH (08:04)
[2022-10-24] MEDS: atorvaSTATin 20 MG Tab PO SCH (08:05)
[2022-10-24] MEDS: Losartan 50 MG Tab PO SCH (08:05)
[2022-10-24] MEDS: Aspirin 81 MG Tab.EC PO SCH (08:06)
[2022-10-24] MEDS: Famotidine 20 MG Tab PO SCH (08:06)
[2022-10-25] MEDS: Acetaminophen 325 MG Tab PO PRN ×4 (00:35→22:02)
[2022-10-25] MEDS: Heparin Sodium 5,000 Units/ML Vial SUBCUT SCH (00:35)
[2022-10-25] MEDS: traMADol 50 MG Tab PO PRN ×4 (00:38→22:02)
[2022-10-25] MEDS: Docusate Sodium 100 MG Cap PO PRN (05:09)
[2022-10-25] MEDS: Levothyroxine 88 MCG Tab PO SCH (05:09)
[2022-10-25 05:50] LABS: ANION GAP 12.4 (5-15); BUN/CREATININE RATIO 14.3 (14-18); CREATININE 0.7 mg/dL (0.55-1.02); EST CRCL DRUG DOSING (CG) 38.98 mL/min; POTASSIUM,K 4.4 mEq/L (3.5-5.1)
[2022-10-25] MEDS ORDERED: oxyCODONE 5 MG Tab PO PRN (06:40)
[2022-10-25] MEDS: Sodium Chloride 0.9% 1,000 ML IV SCH ×2 (06:52→18:11)
[2022-10-25] MEDS: atorvaSTATin 20 MG Tab PO SCH (08:38)
[2022-10-25] MEDS: Enoxaparin 30 MG/0.3 ML Syringe SUBCUT SCH (08:38)
[2022-10-25] MEDS: Aspirin 81 MG Tab.EC PO SCH (08:38)
[2022-10-25] MEDS: Cholecalciferol (Vitamin D3) 5,000 UNIT Cap PO SCH (08:38)
[2022-10-25] MEDS: Azithromycin 250 MG Tab PO SCH (08:38)
[2022-10-25] MEDS: Famotidine 20 MG Tab PO SCH (08:39)
[2022-10-25] MEDS: Losartan 50 MG Tab PO SCH (08:39)
[2022-10-25] MEDS: Temazepam 7.5 MG Cap PO PRN (22:03)
[2022-10-26] MEDS: Levothyroxine 88 MCG Tab PO SCH ×2 (04:47→07:58)
[2022-10-26] MEDS: traMADol 50 MG Tab PO PRN ×2 (04:47→19:37)
[2022-10-26] MEDS: Sodium Chloride 0.9% 1,000 ML IV SCH ×3 (04:48→23:47)
[2022-10-26] MEDS: Acetaminophen 325 MG Tab PO PRN ×2 (04:48→19:37)
[2022-10-26 06:08] LABS: ANION GAP 9.8 (5-15); BUN/CREATININE RATIO 13.8 (14-18); CALCIUM 8.7 mg/dL (8.5-10.1); CREATININE 0.8 mg/dL (0.55-1.02); EST CRCL DRUG DOSING (CG) 34.24 mL/min; POTASSIUM,K 3.8 mEq/L (3.5-5.1)
[2022-10-26] MEDS ORDERED: Magnesium Hydroxide 400 MG/5 ML Susp 30 ML Cup PO ONE (08:00)
[2022-10-26] MEDS: Enoxaparin 30 MG/0.3 ML Syringe SUBCUT SCH (09:48)
[2022-10-26] MEDS: Cholecalciferol (Vitamin D3) 5,000 UNIT Cap PO SCH (09:49)
[2022-10-26] MEDS: atorvaSTATin 20 MG Tab PO SCH (09:50)
[2022-10-26] MEDS: Aspirin 81 MG Tab.EC PO SCH (09:51)
[2022-10-26] MEDS: Azithromycin 250 MG Tab PO SCH (09:51)
[2022-10-26] MEDS: Famotidine 20 MG Tab PO SCH (09:52)
[2022-10-26] MEDS: Losartan 50 MG Tab PO SCH (09:53)
[2022-10-26] MEDS: Docusate Sodium 100 MG Cap PO PRN ×2 (11:44→19:38)
[2022-10-27] MEDS: Levothyroxine 88 MCG Tab PO SCH (06:15)
[2022-10-27] MEDS: Acetaminophen 325 MG Tab PO PRN (06:16)
[2022-10-27] MEDS: traMADol 50 MG Tab PO PRN (06:17)
[2022-10-27 06:53] LABS: ANION GAP 9.7 (5-15); CALCIUM 8.8 mg/dL (8.5-10.1); CREATININE 0.6 mg/dL (0.55-1.02); EST CRCL DRUG DOSING (CG) 45.66 mL/min; POTASSIUM,K 3.7 mEq/L (3.5-5.1)
[2022-10-27] MEDS: Azithromycin 250 MG Tab PO SCH (08:17)
[2022-10-27] MEDS: Losartan 50 MG Tab PO SCH (08:18)
[2022-10-27] MEDS: Famotidine 20 MG Tab PO SCH (08:18)
[2022-10-27] MEDS: atorvaSTATin 20 MG Tab PO SCH (08:19)
[2022-10-27] MEDS: Cholecalciferol (Vitamin D3) 5,000 UNIT Cap PO SCH (08:19)
[2022-10-27] MEDS: Enoxaparin 30 MG/0.3 ML Syringe SUBCUT SCH (08:19)
[2022-10-27] MEDS: Aspirin 81 MG Tab.EC PO SCH (08:20)
[2022-10-27 11:27] VITALS: BP 127/89; PULSE 71
== END 2022-10-27 12:57 | disposition home or self-care (01) | DRG 178 ==
LOC: JD.ED 13:36 → JD.MS 16:49
PROVIDERS: ADMIT Internal Medicine; ATTEND Internal Medicine
DX: R11.2 Nausea with vomiting, unspecified (principal); A31.0 Pulmonary mycobacterial infection; R53.1 Weakness; E87.1 Hypo-osmolality and hyponatremia; E87.6 Hypokalemia; I10 Essential (primary) hypertension; Z66 Do not resuscitate; T50.905A Adverse effect of unspecified drugs, medicaments and biological substances, initial encounter; H54.7 Unspecified visual loss; G89.29 Other chronic pain; M54.9 Dorsalgia, unspecified; G43.909 Migraine, unspecified, not intractable, without status migrainosus; Z96.659 Presence of unspecified artificial knee joint; G31.84 Mild cognitive impairment of uncertain or unknown etiology; I48.0 Paroxysmal atrial fibrillation; D64.9 Anemia, unspecified; E83.42 Hypomagnesemia; I48.91 Unspecified atrial fibrillation; Z98.890 Other specified postprocedural states; Z90.49 Acquired absence of other specified parts of digestive tract; Z90.710 Acquired absence of both cervix and uterus; Z79.890 Hormone replacement therapy; E03.9 Hypothyroidism, unspecified; Z79.82 Long term (current) use of aspirin; Z79.899 Other long term (current) drug therapy
CPT/HCPCS: 36415; 71046; 80053; 81001; 83735; 83930; 85025; 86140; J2405 ×2; J3475; J3480; J3490; J7030; 80048; 97110-GP; 97116-GP; 97161-GP; 97166-GO; 99222; 99232; A9270-GY; J1644; J1650; J2550